=== PATIENT | female | born 1980 | race Caucasian/White ===

== ENCOUNTER 2016-09-18 17:07 | Emergency (ER) | payer OTHER ==
[~2016-09-18] VITALS: Ht 160 cm; Wt 58.8 kg
[~2016-09-18 17:07] MED LIST: CYCL10TA6 PO; HYDR-5688 PO; PRED20TA2 PO
[2016-09-18 17:15] VITALS: TEMP 37; Ht 160 cm; Wt 58.8 kg
[2016-09-18] MEDS ORDERED: BUSP1TAB46 PO (17:23)
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
[2016-09-18 18:29] VITALS: BP 117/73; PULSE 69; O2SAT 97
[2016-09-18] MEDS ORDERED: ESCI1TAB10 PO (21:58)
== END 2016-09-18 18:30 | disposition home or self-care (01) ==
LOC: EDBD 17:07 → C.EDA 17:09
DX: M79.632 Pain in left forearm (principal); V43.52XA Car driver injured in collision with other type car in traffic accident, initial encounter; Y93.89 Activity, other specified; Y99.8 Other external cause status; Y92.410 Unspecified street and highway as the place of occurrence of the external cause; F41.9 Anxiety disorder, unspecified; F32.9 Major depressive disorder, single episode, unspecified; Z86.14 Personal history of Methicillin resistant Staphylococcus aureus infection; Z86.32 Personal history of gestational diabetes; Z87.01 Personal history of pneumonia (recurrent); Z87.891 Personal history of nicotine dependence; Z83.3 Family history of diabetes mellitus; Z82.49 Family history of ischemic heart disease and other diseases of the circulatory system; Z79.899 Other long term (current) drug therapy

== ENCOUNTER 2016-09-22 15:39 | Emergency (ER) | payer OTHER ==
[~2016-09-22] VITALS: Ht 160 cm; Wt 54.9 kg
[~2016-09-22 15:39] MED LIST changes: +BUSP1TAB46 PO; -CYCL10TA6 PO; -HYDR-5688 PO; -PRED20TA2 PO
[2016-09-22 15:41] VITALS: TEMP 36.8; Ht 160 cm; Wt 54.9 kg
[2016-09-22] MEDS ORDERED: IBUP-103 PO (16:18)
[2016-09-22] MEDS ORDERED: KETOROLAC TROMETHAMINE 60 MG/2 ML VIAL IM STA (16:56)
[2016-09-22] MEDS ORDERED: DIAZEPAM INJ 5 MG/ML 2 ML CARP IM STA (16:56)
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
[2016-09-22] MEDS ORDERED: DIAZ-165 PO (17:58)
[2016-09-22] MEDS ORDERED: MELO15TA10 PO (17:58)
[2016-09-22 18:07] VITALS: BP 114/68; PULSE 86; O2SAT 97
[2016-09-22] MEDS ORDERED: ESCI1TAB10 PO (21:58)
== END 2016-09-22 18:08 | disposition home or self-care (01) ==
LOC: C.EDB 15:40 → C.EDD 18:08
DX: M54.5 Low back pain (principal); F41.9 Anxiety disorder, unspecified; F32.9 Major depressive disorder, single episode, unspecified

== ENCOUNTER 2017-06-06 18:24 | Emergency (ER) | payer SELFPAY ==
[~2017-06-06] VITALS: Ht 160 cm; Wt 56.8 kg
[~2017-06-06 18:24] MED LIST changes: +ESCI1TAB10 PO; +IBUP-103 PO; +MELO15TA10 PO
[2017-06-06 18:31] VITALS: TEMP 37.1; Ht 160 cm; Wt 56.8 kg
--- NOTE | 2017-06-06 19:59 | EMERGENCY ROOM VISIT NOTE ---
History First contact with patient: 19:05 Chief Complaint: FLU LIKE SX Stated Complaint: FEVER, BODY ACHE, CONGESTION, CRAMPS, CHILLS History of Present Illness The patient is a 36 year old female who presents to the Emergency Room with complaints of flulike symptoms. Patient reports that she has had flulike symptoms for the past 5 days. She reports body aches, headache, fevers, nasal congestion, sore throat and cough. She states that the cough has been productive of a clear mucus. Her fevers have been up to 101-102F. She states that her temperature has improved when taking ibuprofen. She rates her overall discomfort a 5/10. She does state that 1 of her coworkers was recently diagnosed with influenza B. The patient has had some abdominal cramping today but denies nausea, vomiting or diarrhea. She has a decreased appetite but has been tolerating food without any difficulty. She denies neck pain/stiffness or chest pain. Review of Systems A complete 10 point review of systems was reviewed with the patient with pertinent positives and negatives as per history of present illness. All else were negative. Past Medical/Surgical History Medical Problems: (1) Anxiety (2) Depression (3) Gestational diabetes (4) MRSA infection (5) Pneumonia (6) right fifth finger fracture (7) Suicidal ideations Family History Cancer Diabetes mellitus Heart disease Hypertension Lung disease Social History Smoking Status: Former Smoker Alcohol Use: none Marital Status: in relationship Housing Status: lives with family Occupation Status: employed Current/Historical Medications Scheduled Escitalopram Oxalate (Escitalopram Oxalate), 20 MG PO DAILY Scheduled PRN Ibuprofen Tab (Advil), 400 MG PO Q6H PRN for Pain or Fever Physical Exam Vital Signs Date Time Temp Pulse Resp B/P (MAP) Pulse Ox O2 Delivery O2 Flow Rate FiO2 06/06/17 21:18 75 16 108/56 96 Room Air 06/06/17 18:31 37.1 86 18 101/72 96 Room Air Physical Exam VITALS: Vitals are noted on the nurse's note and reviewed by myself. Vital signs stable. GENERAL: This is a 36-year-old female, in no acute distress, nondiaphoretic, well-developed well-nourished. SKIN: The skin was without rashes. EARS: External auditory canals clear, tympanic membranes pearly khan without erythema or effusion bilaterally. EYES: Pupils equal round and reactive to light and accommodation. NOSE: Patent, turbinates without inflammation or discharge. MOUTH: Mucous membranes moist. Tonsils are not enlarged. Pharynx without erythema or exudate. NECK: Supple without nuchal rigidity. No lymphadenopathy. HEART: Regular rate and rhythm without murmurs gallops or rubs. LUNGS: Clear to auscultation bilaterally without wheezes, rales or rhonchi. No retractions or accessory muscle use. ABDOMEN: Positive bowel sounds x 4. Soft, mild generalized tenderness to palpation. No guarding or rebound tenderness. NEURO: Patient was alert and oriented to person place and time. Medical Decision & Procedures ER Provider Diagnostic Interpretation: CHEST 2 VIEWS ROUTINE HISTORY: cough, flu-like sxs COMPARISON: Chest 01/30/2015. FINDINGS: The lungs are clear. Cardiac silhouette is normal in size. No pleural effusions. No pneumothorax. IMPRESSION: No acute process. Laboratory Results Test 06/06/17 19:40 Influenza Type A Antigen Neg for Influ A (NEG) Influenza Type B Antigen Neg for Influ B (NEG) Medications Administered Medications (Trade) Dose Ordered Sig/Javed Route Start Time Stop Time Status Last Admin Dose Admin Albuterol (Ventolin Hfa Inhaler) 2 puffs NOW ONCE INH 06/06/17 21:45 06/06/17 21:45 DC 06/06/17 21:36 2 PUFFS Medical Decision Differential diagnosis includes influenza, pneumonia, strep pharyngitis, mononucleosis, among others. The patient was evaluated as above. She presents today with several days of flulike symptoms. Vital signs stable and patient nontoxic in appearance. Chest x-ray was performed and showed no evidence of pneumonia. Influenza testing was found to be negative, however patient's symptoms do seem very consistent with influenza and a coworker was recently diagnosed with influenza B. I do feel this likely represents influenza, although the patient would not be a good candidate for Tamiflu. I offered the patient further workup with laboratory testing but she declined at this time. I discussed at length over- the-counter treatments including Tylenol/ibuprofen, steroid nasal spray, Sudafed , rest and fluids. The patient will return here if she has worsening of her symptoms or other new/concerning symptoms. Otherwise, she was instructed to follow-up with her primary care provider for a recheck if symptoms are not improving. She verbalized understanding of my assessment and treatment plan and was discharged home in good condition. Medication Reconcilliation Current Medication List: was personally reviewed by me Blood Pressure Screening Patient's blood pressure: Normal blood pressure Impression Primary Impression: Influenza-like symptoms Departure Information Dispostion Home / Self-Care Condition GOOD Referrals Gaurang Hector III, CRNP (PCP) Patient Instructions My [facility] Additional Instructions You were seen today for influenza-like symptoms. Your influenza test was negative, however this does not definitively rule out influenza. For pain/fever control, you can use the following [id number] medicines ( if >12 yo): -Extra strength (500 mg/tab) Tylenol (acetaminophen) 2 tabs every 6 hours as needed. Avoid taking more than 4 grams (4000 mg) of Tylenol per day. This includes any other sources of acetaminophen you may take on a regular basis. - Regular strength (200 mg/tab) Advil (ibuprofen) 3-4 tabs every 6 hours as needed. Do not exceed a dose of 3200 mg per day. You may take Sudafed as directed on the package as needed for congestion. You may try a Flonase nasal spray to reduce nasal congestion. This is a steroid nasal spray which can be purchased [id number]. Use the Ventolin inhaler every 4-6 hours as needed for cough/shortness of breath. Follow-up with your primary care provider if symptoms are not improving by the end of the week. It is very important that you rest for the next 2-3 days and drink plenty of fluids to stay well-hydrated. Return to the emergency department with focal abdominal pain, high fevers not controlled by Tylenol or ibuprofen, neck pain/stiffness, vomiting, or any other new/concerning symptoms.
--- NOTE | 2017-06-06 20:15 | DIAGNOSTIC IMAGING REPORT ---
CHEST 2 VIEWS ROUTINE HISTORY: cough, flu-like sxs COMPARISON: Chest 01/30/2015. FINDINGS: The lungs are clear. Cardiac silhouette is normal in size. No pleural effusions. No pneumothorax. IMPRESSION: No acute process. Electronically signed by: Kobe Damon M.D. 06/06/2017 8:14 PM Dictated Date/Time: 06/06/2017 8:12 PM
[2017-06-06 20:25] LABS: INFLUENZA B ANTIGEN Neg for Influ B (NEG)
[2017-06-06] MEDS ORDERED: LXP/20 PO (20:27)
[2017-06-06 21:18] VITALS: BP 108/56; PULSE 75; O2SAT 96
[2017-06-06] MEDS ORDERED: ALBUTEROL HFA 8 GM INHALER INH ONE ×2 (21:34→21:45)
== END 2017-06-06 21:38 | disposition home or self-care (01) ==
LOC: C.EDB 18:26 → C.EDA 21:38
DX: R05 Cough (principal); R51 Headache; R09.81 Nasal congestion; J02.9 Acute pharyngitis, unspecified; R10.817 Generalized abdominal tenderness; F41.9 Anxiety disorder, unspecified; F32.9 Major depressive disorder, single episode, unspecified; Z87.891 Personal history of nicotine dependence

== ENCOUNTER 2021-01-08 12:19 | Inpatient (IN) ==
[2021-01-08] MEDS ORDERED: SODIUM CHLORIDE 0.9% 1000ML 2,000 ML IV ONE (12:33)
[2021-01-08] MEDS ORDERED: CEFEPIME 2,000 MG/20 ML VIAL IV STA (12:38)
[2021-01-08] MEDS ORDERED: ONDANSETRON INJ 2 MG/ML 2 ML VIAL IV STA (12:38)
--- NOTE | 2021-01-08 12:59 | Emergency Department Note ---
Impression & Plan Pancolitis, Diarrhea, Hypokalemia, Acute hypotension, Clostridium difficile colitis ED Provider Note NAME: RUSSELL POWELL AGE: 40 SEX: F : 1980 ARRIVES VIA: Walk-In INFORMANT: Patient, ED PROVIDER(S): Ant Pruitt DO CHIEF COMPLAINT: Weakness HPI: The patient is a 40-year-old female who presented to the emergency d [facility] for an evaluation of weakness. The patient states that she is been having symptoms over the course the last few weeks. She was treated with an antibiotic for an infection. She states that the symptoms resolved but over the last 48 hours she started having other symptoms including back pain and loose bowel movements. She states her symptoms became moderate to severe and she called her primary care physician today to be seen. She was told to go to the emergency department for further evaluation. She denies having any dysuria. She does complain of some bilateral flank pain. She denies having any chest pain cough or difficulty breathing. She states that she felt subjectively that she had a fever but did not check her temperature. She denies having any lower extremity swelling or rashes. She denies having any vaginal bleeding or discharge. She has a history of a hysterectomy in the past for dysfunctional bleeding from fibroids. The patient was noted to have significant abnormal vital signs in triage. She was made a priority patient and brought directly to room A4. She states that she felt as though she was going to pass out when she stood up but now that she is lying flat she feels better. She denies having any black or bloody bowel movements. ROS: See above HPI for pertinent positives & negatives. A total of 10 systems reviewed and were otherwise negative. PAST MEDICAL HISTORY: See Below PAST SURGICAL HISTORY: See Below FAMILY HISTORY: See Below SOCIAL HISTORY: See Below HOME MEDICATIONS: See Below ALLERGIES: See Below VITALS: See Below PHYSICAL EXAMINATION: GENERAL: Patient is awake alert in no acute distress patient is resting comfortably and showing no signs of anxiety EYES: The conjunctivae are clear. The pupils are round and reactive. EARS, NOSE, MOUTH AND THROAT: The nose is without any evidence of any deformity. Mucous membranes are moist. Tongue is midline. NECK: The neck is nontender and supple. RESPIRATORY: Normal respiratory effort is noted there is no evidence of wheezing rhonchi or rales CARDIOVASCULAR: Regular rate and rhythm noted there no murmurs rubs or gallops normal S1 normal S2. GASTROINTESTINAL: The abdomen is soft and nondistended. There is diffuse tenderness to palpation but no guarding or rigidity. BACK: No midline tenderness or or step-off noted range of motion in flexion ext ension as well as rotation no signs of muscle spasm noted MUSCULOSKELETAL/EXTREMITIES: There is no evidence of gross deformity full range of motion is noted in the hips and shoulders. SKIN: There is no obvious evidence of any rash. There are no petechiae, pallor or cyanosis noted. NEUROLOGIC: Patient is awake alert and oriented x3 strength is symmetric patellar reflexes are 2+ bilaterally MEDICAL DECISION MAKING: The patient is a 40-year-old female who presented to the emergency department for an evaluation of lower abdominal cramping. The patient was experiencing diarrhea. She was placed on clindamycin a few weeks ago. She started having some abdominal cramping and generalized weakness. She presented to the emergency department with lightheadedness. She was found to be very hypotensive and tachycardic. She was brought back to room 8 4 immediately and made a priority patient. She was treated with IV fluids and IV antibiotics in the em ergency department. She was also treated with IV pain medication. She was treated with 3 L of normal saline. Her blood pressure did stabilize. I discussed patient's laboratory and radiographic studies with her. We are still waiting for stool sample. Given her CT findings it is highly possible this could represent pancolitis from C. difficile colitis. If this were the case the involvement is extensive. She may require further inpatient management. For this reason I discussed her case with the on-call [facility] hospitalist. They have agreed to evaluate the patient in the emergency department for further management and disposition. The patient did recently have a hysterectomy. G iven her hypotension there was concern that this could be postoperative complications such as infection or bleeding. This was not found to be the case on CAT scan. Triage Nursing notes reviewed. Prior medical records reviewed Vital Signs: reviewed and remarkable for hypotension and tachycardia. Differential diagnosis: Renal colic, UTI, appendicitis, diverticulitis, mesenteric ischemia, aortic pathology, infections, inflammatory bowel disease, PUD, biliary pathology, as well as other pathologies. ER treatment provided: See below Diagnostics interpreted by me: ECG: EKG was obtained in the emergency department. My interpretation is sinus rhythm at 93 bpm. There was no ectopy. There is no acute ST segment abnormalities noted. This was compared to a tracing from November 282020. No significant changes were noted. Cardiac Monitoring: An order was placed for continuous cardiac monitoring. The monitor shows a rate of 105 bpm with sinus tachycardia. Laboratory studies: As stated above and show below. Imaging studies: See below Consultation(s): I discussed this case with Dr. Foster who is on-call for the [facility] hospitalist group. He will evaluate the patient in the emergency department. Past Med/Surg History Medical History (Updated 01/09/21 @ 06:32 by Ant Pruitt DO) Anemia Anxiety Depression Gestational diabetes hx Pneumonia recurrent pneumonias in her early 30s Tuberculosis 2011 s/p treatment x 9 months Uterine fibroid Surgical History H/O hysterectomy for benign disease TLH for fibroids. H/O tubal ligation H/O wisdom tooth extraction H/O: section History of anesthesia reaction Post-op hypotension that needed to be monitored longer (no further details per PAT RN interview) History of carpal tunnel surgery of right wrist Hx of hand surgery 3 surgies, had pins Hx of lymph node excision abdomen and groin Family History Grandmother (Maternal) Myocardial infarction Aunt Ovarian cancer Maternal Cervical cancer Sister Endometriosis Father Type 1 diabetes Mother Rheumatoid arthritis Other Dyslipidemia Hypertension Denies family history of Prostate cancer Breast cancer Colorectal cancer Uterine cancer Social History Smoking Status: Former smoker Cigarettes Per Day: 0.5; Smoking End Date: 2012; Second Hand Exposure: No; Do You Dip or Chew Tobacco: No; Tobacco Cessation Education Requested by Patient: No Hx Alcohol Use: Yes Alcohol type: wine Alcohol Intake Frequency: 2-4 x/Month Hx Substance Use: No Preferred Language: Georgian Communication Ability: Effective Visual Impairment: No Limitations Hearing Ability: Normal Dermatology Nurse Practitioner Required: No Beliefs That Will Affect Care: None marital status: Single Current Living Situation: Family Current Living Situation Comment: Lives 2 [place] (20 yrs old, 13 yrs old) current occupational status: employed 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 [employer] How many Children do You have: 2 Other Information That Helps Us Care for You: No Feels Safe at Home: Yes Safety Concerns: Feels Safe At This Time Childhood Exposure to Second-Hand Smoke: No Dental Care, Regularly: Yes Physical Activity Frequency: Daily Seatbelt Use: always Sunscreen Use: Yes Do you think of yourself as: straight/heterosexual Assistive Devices: Glasses Allergies Allergies Allergy/AdvReac Type Severity Reaction Status Date / Time Penicillins Allergy Intermediate HIVES Verified 01/08/21 15:15 Home Meds Home Medications Medication Instructions Recorded Confirmed vitamin B complex 1 cap PO DAILY 09/29/20 01/08/21 multivitamin 1 tab PO DAILY 11/23/20 01/08/21 cholecalciferol (vitamin D3) 25 25 mcg PO DAILY 01/08/21 01/08/21 mcg (1,000 unit) tablet (Vitamin D3) Results & Data (ED) Vital Signs Vital Signs - 24 hr 01/08/21 12:23 01/08/21 12:41 01/08/21 12:45 Temperature 36.7 C Temperature Source Skin Pulse Rate 120 H 95 H Pulse Rate [Apical] Pulse Rate from SpO2 Sensor 96 H Pulse Rhythm [Apical] Respiratory Rate 24 17 Respiratory Effort / Characteristics Non-Labored Respiratory Depth Normal Blood Pressure 69/40 L Blood Pressure [Left Arm] Blood Pressure Mean 49 Blood Pressure Mean [Left Arm] Blood Pressure Position [Left Arm] Pulse Oximetry 100 100 Oxygen Delivery Method Room Air Room Air Sepsis Recent Fever Within 48 Hours No Sepsis New/Unexplained Change in Mental Status N/A Sepsis Action Taken by Nursing Physician Notified 01/08/21 12:50 01/08/21 13:00 01/08/21 13:10 Temperature Temperature Source Pulse Rate 100 H 97 H 107 H Pulse Rate [Apical] Pulse Rate from SpO2 Sensor 100 H 97 H 107 H Pulse Rhythm [Apical] Respiratory Rate 14 16 19 Respiratory Effort / Characteristics Respiratory Depth Blood Pressure Blood Pressure [Left Arm] Blood Pressure Mean Blood Pressure Mean [Left Arm] Blood Pressure Position [Left Arm] Pulse Oximetry 98 97 99 Oxygen Delivery Method Sepsis Recent Fever Within 48 Hours Sepsis New/Unexplained Change in Mental Status Sepsis Action Taken by Nursing 01/08/21 13:20 01/08/21 13:30 01/08/21 13:34 Temperature Temperature Source Pulse Rate 108 H 108 H Pulse Rate [Apical] 108 H Pulse Rate from SpO2 Sensor 107 H 108 H Pulse Rhythm [Apical] Regular Respiratory Rate 25 H 20 20 Respiratory Effort / Characteristics Respiratory Depth Blood Pressure 98/69 L Blood Pressure [Left Arm] 98/69 L Blood Pressure Mean 78 Blood Pressure Mean [Left Arm] 78 Blood Pressure Position [Left Arm] Lying Pulse Oximetry 97 99 95 Oxygen Delivery Method Room Air Sepsis Recent Fever Within 48 Hours Sepsis New/Unexplained Change in Mental Status Sepsis Action Taken by Nursing 01/08/21 13:44 01/08/21 13:50 01/08/21 14:00 Temperature Temperature Source Pulse Rate 117 H 107 H 111 H Pulse Rate [Apical] Pulse Rate from SpO2 Sensor 115 H 107 H Pulse Rhythm [Apical] Respiratory Rate 22 15 14 Respiratory Effort / Characteristics Respiratory Depth Blood Pressure 122/70 Blood Pressure [Left Arm] Blood Pressure Mean 87 Blood Pressure Mean [Left Arm] Blood Pressure Position [Left Arm] Pulse Oximetry 95 98 Oxygen Delivery Method Sepsis Recent Fever Within 48 Hours Sepsis New/Unexplained Change in Mental Status Sepsis Action Taken by Nursing 01/08/21 14:02 01/08/21 14:16 01/08/21 14:20 Temperature Temperature Source Pulse Rate 105 H 107 H Pulse Rate [Apical] Pulse Rate from SpO2 Sensor 105 H 110 H Pulse Rhythm [Apical] Respiratory Rate 26 H 22 Respiratory Effort / Characteristics Respiratory Depth Blood Pressure Blood Pressure [Left Arm] Blood Pressure Mean Blood Pressure Mean [Left Arm] Blood Pressure Position [Left Arm] Pulse Oximetry 98 96 98 Oxygen Delivery Method Room Air Sepsis Recent Fever Within 48 Hours Sepsis New/Unexplained Change in Mental Status Sepsis Action Taken by Nursing 01/08/21 14:24 Temperature Temperature Source Pulse Rate Pulse Rate [Apical] 105 H Pulse Rate from SpO2 Sensor Pulse Rhythm [Apical] Respiratory Rate 16 Respiratory Effort / Characteristics Respiratory Depth Blood Pressure Blood Pressure [Left Arm] 122/70 Blood Pressure Mean Blood Pressure Mean [Left Arm] 87 Blood Pressure Position [Left Arm] Lying Pulse Oximetry 95 Oxygen Delivery Method Room Air Sepsis Recent Fever Within 48 Hours Sepsis New/Unexplained Change in Mental Status Sepsis Action Taken by [facility] Medications Current Medication List: was personally reviewed by me Laboratory Data Attestation: I reviewed the patient's lab results. Result diagrams: 01/09/21 05:43 01/08/21 12:45 Lab Results 01/08/21 01/08/21 01/08/21 Range/Units 12:45 12:45 12:45 WBC 20.50 H (4.8-10.8) K/uL RBC 4.68 (4.2-5.4) M/uL Hgb 13.8 (12.0-16.0) g/dL Hct 39.9 (37-47) % MCV 85.3 (80-100) fL MCH 29.5 (25-34) pg MCHC 34.6 (32-36) g/dL RDW Std Deviation 40.0 (36.4-46.3) fL RDW Coeff of Fantasma 12.9 (11.5-14.5) % Plt Count 313 (130-400) K/uL MPV 10.5 H (7.4-10.4) fL Immature Gran % (Auto) 0.3 % Neut % (Auto) 85.6 % Lymph % (Auto) 7.9 % Valley % (Auto) 5.1 % Eos % (Auto) 1.0 % Baso % (Auto) 0.1 % Neut # (Auto) 17.56 H (1.4-6.5) K/uL Lymph # (Auto) 1.61 (1.2-3.4) K/uL Valley # (Auto) 1.04 H (0.11-0.59) K/uL Eos # (Auto) 0.20 (0-0.5) K/uL Baso # (Auto) 0.03 (0-0.2) K/uL Immature Gran # (Auto) 0.06 H (0.00-0.02) K/uL PT 10.0 (9.0-12.0) Seconds INR 1.0 (0.9-1.1) APTT 22.0 (21.0-31.0) Seconds PTT Ratio 0.8 Sodium 139 (136-145) mmol/L Potassium 3.1 L (3.5-5.1) mmol/L Chloride 108 H (98-107) mmol/L Carbon Dioxide 22 (21-32) mmol/L Anion Gap 9.0 (3-11) BUN 11 (7-18) mg/dl Creatinine 0.87 (0.6-1.2) mg/dl Est Cr Clr Drug Dosing 68.7 ml/min Est GFR ( Amer) 97.3 ml/min Est GFR (Non-Af Amer) 83.9 ml/min BUN/Creatinine Ratio 13.1 (10-20) Glucose 133 H (70-99) mg/dl Lactate (0.4-2.0) mmol/L Calcium 8.9 (8.5-10.1) mg/dl Magnesium 2.0 (1.8-2.4) mg/dl Total Bilirubin 1.4 H (0.2-1) mg/dl AST 10 L (15-37) U/L ALT 19 (12-78) U/L Alkaline Phosphatase 60 (45-117) U/L Troponin I < 0.015 (0-0.045) ng/ml Total Protein 7.3 (6.4-8.2) gm/dl Albumin 3.7 (3.4-5.0) gm/dl Globulin 3.6 (2.5-4.0) gm/dl Albumin/Globulin Ratio 1.0 (0.9-2) Procalcitonin (0-0.5) ng/ml Urine Color Urine Appearance (Clear) Urine pH (4.5-7.5) Ur Specific Max (1.000-1.030) Urine Protein (Negative) Urine Glucose (UA) (Negative) Urine Ketones (Negative) Urine Blood (Negative) Urine Nitrite (Negative) Urine Bilirubin (Negative) Urine Urobilinogen (Negative) Ur Leukocyte Esterase (Negative) Stl C. diff Tox B Gene (Neg) Stl C.difficile Tox A&B (Negative) Salicylates (2.8-20) mg/dl Acetaminophen (10-30) ug/ml COVID-19 Eval Order SARS-CoV-2 (PCR) (Negative) Monoscreen (Negative) 01/08/21 01/08/21 01/08/21 Range/Units 12:45 12:45 12:45 WBC (4.8-10.8) K/uL RBC (4.2-5.4) M/uL Hgb (12.0-16.0) g/dL Hct (37-47) % MCV (80-100) fL MCH (25-34) pg MCHC (32-36) g/dL RDW Std Deviation (36.4-46.3) fL RDW Coeff of Fantasma (11.5-14.5) % Plt Count (130-400) K/uL MPV (7.4-10.4) fL Immature Gran % (Auto) % Neut % (Auto) % Lymph % (Auto) % Valley % (Auto) % Eos % (Auto) % Baso % (Auto) % Neut # (Auto) (1.4-6.5) K/uL Lymph # (Auto) (1.2-3.4) K/uL Valley # (Auto) (0.11-0.59) K/uL Eos # (Auto) (0-0.5) K/uL Baso # (Auto) (0-0.2) K/uL Immature Gran # (Auto) (0.00-0.02) K/uL PT (9.0-12.0) Seconds INR (0.9-1.1) APTT (21.0-31.0) Seconds PTT Ratio Sodium (136-145) mmol/L Potassium (3.5-5.1) mmol/L Chloride (98-107) mmol/L Carbon Dioxide (21-32) mmol/L Anion Gap (3-11) BUN (7-18) mg/dl Creatinine (0.6-1.2) mg/dl Est Cr Clr Drug Dosing ml/min Est GFR ( Amer) ml/min Est GFR (Non-Af Amer) ml/min BUN/Creatinine Ratio (10-20) Glucose (70-99) mg/dl Lactate (0.4-2.0) mmol/L Calcium (8.5-10.1) mg/dl Magnesium (1.8-2.4) mg/dl Total Bilirubin (0.2-1) mg/dl AST (15-37) U/L ALT (12-78) U/L Alkaline Phosphatase (45-117) U/L Troponin I (0-0.045) ng/ml Total Protein (6.4-8.2) gm/dl Albumin (3.4-5.0) gm/dl Globulin (2.5-4.0) gm/dl Albumin/Globulin Ratio (0.9-2) Procalcitonin < 0.05 (0-0.5) ng/ml Urine Color Urine Appearance (Clear) Urine pH (4.5-7.5) Ur Specific Max (1.000-1.030) Urine Protein (Negative) Urine Glucose (UA) (Negative) Urine Ketones (Negative) Urine Blood (Negative) Urine Nitrite (Negative) Urine Bilirubin (Negative) Urine Urobilinogen (Negative) Ur Leukocyte Esterase (Negative) Stl C. diff Tox B Gene (Neg) Stl C.difficile Tox A&B (Negative) Salicylates < 1.7 L (2.8-20) mg/dl Acetaminophen < 2 L (10-30) ug/ml COVID-19 Eval Order SARS-CoV-2 (PCR) (Negative) Monoscreen Negative (Negative) 01/08/21 01/08/21 01/08/21 Range/Units 12:48 12:48 13:11 WBC (4.8-10.8) K/uL RBC (4.2-5.4) M/uL Hgb (12.0-16.0) g/dL Hct (37-47) % MCV (80-100) fL MCH (25-34) pg MCHC (32-36) g/dL RDW Std Deviation (36.4-46.3) fL RDW Coeff of Fantasma (11.5-14.5) % Plt Count (130-400) K/uL MPV (7.4-10.4) fL Immature Gran % (Auto) % Neut % (Auto) % Lymph % (Auto) % Valley % (Auto) % Eos % (Auto) % Baso % (Auto) % Neut # (Auto) (1.4-6.5) K/uL Lymph # (Auto) (1.2-3.4) K/uL Valley # (Auto) (0.11-0.59) K/uL Eos # (Auto) (0-0.5) K/uL Baso # (Auto) (0-0.2) K/uL Immature Gran # (Auto) (0.00-0.02) K/uL PT (9.0-12.0) Seconds INR (0.9-1.1) APTT (21.0-31.0) Seconds PTT Ratio Sodium (136-145) mmol/L Potassium (3.5-5.1) mmol/L Chloride (98-107) mmol/L Carbon Dioxide (21-32) mmol/L Anion Gap (3-11) BUN (7-18) mg/dl Creatinine (0.6-1.2) mg/dl Est Cr Clr Drug Dosing ml/min Est GFR ( Amer) ml/min Est GFR (Non-Af Amer) ml/min BUN/Creatinine Ratio (10-20) Glucose (70-99) mg/dl Lactate 1.1 (0.4-2.0) mmol/L Calcium (8.5-10.1) mg/dl Magnesium (1.8-2.4) mg/dl Total Bilirubin (0.2-1) mg/dl AST (15-37) U/L ALT (12-78) U/L Alkaline Phosphatase (45-117) U/L Troponin I (0-0.045) ng/ml Total Protein (6.4-8.2) gm/dl Albumin (3.4-5.0) gm/dl Globulin (2.5-4.0) gm/dl Albumin/Globulin Ratio (0.9-2) Procalcitonin (0-0.5) ng/ml Urine Color Urine Appearance (Clear) Urine pH (4.5-7.5) Ur Specific Max (1.000-1.030) Urine Protein (Negative) Urine Glucose (UA) (Negative) Urine Ketones (Negative) Urine Blood (Negative) Urine Nitrite (Negative) Urine Bilirubin (Negative) Urine Urobilinogen (Negative) Ur Leukocyte Esterase (Negative) Stl C. diff Tox B Gene (Neg) Stl C.difficile Tox A&B (Negative) Salicylates (2.8-20) mg/dl Acetaminophen (10-30) ug/ml COVID-19 Eval Order Covid19 at [facility] SARS-CoV-2 (PCR) NEGATIVE (Negative) Monoscreen (Negative) 01/08/21 01/08/21 Range/Units 13:50 14:47 WBC (4.8-10.8) K/uL RBC (4.2-5.4) M/uL Hgb (12.0-16.0) g/dL Hct (37-47) % MCV (80-100) fL MCH (25-34) pg MCHC (32-36) g/dL RDW Std Deviation (36.4-46.3) fL RDW Coeff of Fantasma (11.5-14.5) % Plt Count (130-400) K/uL MPV (7.4-10.4) fL Immature Gran % (Auto) % Neut % (Auto) % Lymph % (Auto) % Valley % (Auto) % Eos % (Auto) % Baso % (Auto) % Neut # (Auto) (1.4-6.5) K/uL Lymph # (Auto) (1.2-3.4) K/uL Valley # (Auto) (0.11-0.59) K/uL Eos # (Auto) (0-0.5) K/uL Baso # (Auto) (0-0.2) K/uL Immature Gran # (Auto) (0.00-0.02) K/uL PT (9.0-12.0) Seconds INR (0.9-1.1) APTT (21.0-31.0) Seconds PTT Ratio Sodium (136-145) mmol/L Potassium (3.5-5.1) mmol/L Chloride (98-107) mmol/L Carbon Dioxide (21-32) mmol/L Anion Gap (3-11) BUN (7-18) mg/dl Creatinine (0.6-1.2) mg/dl Est Cr Clr Drug Dosing ml/min Est GFR ( Amer) ml/min Est GFR (Non-Af Amer) ml/min BUN/Creatinine Ratio (10-20) Glucose (70-99) mg/dl Lactate (0.4-2.0) mmol/L Calcium (8.5-10.1) mg/dl Magnesium (1.8-2.4) mg/dl Total Bilirubin (0.2-1) mg/dl AST (15-37) U/L ALT (12-78) U/L Alkaline Phosphatase (45-117) U/L Troponin I (0-0.045) ng/ml Total Protein (6.4-8.2) gm/dl Albumin (3.4-5.0) gm/dl Globulin (2.5-4.0) gm/dl Albumin/Globulin Ratio (0.9-2) Procalcitonin (0-0.5) ng/ml Urine Color Yellow Urine Appearance Clear (Clear) Urine pH 6.0 (4.5-7.5) Ur Specific Max 1.012 (1.000-1.030) Urine Protein Negative (Negative) Urine Glucose (UA) Negative (Negative) Urine Ketones Trace H (Negative) Urine Blood Negative (Negative) Urine Nitrite Negative (Negative) Urine Bilirubin Negative (Negative) Urine Urobilinogen Negative (Negative) Ur Leukocyte Esterase Negative (Negative) Stl C. diff Tox B Gene Positive Cdiff Gene H (Neg) Stl C.difficile Tox A&B Positive Cdiff Toxin A* (Negative) Salicylates (2.8-20) mg/dl Acetaminophen (10-30) ug/ml COVID-19 Eval Order SARS-CoV-2 (PCR) (Negative) Monoscreen (Negative) Administered Medications Acetaminophen (Acetaminophen 325 Mg Tab) 650 mg PO Q4H PRN PRN Reason: Pain or Fever Stop: 02/07/21 19:09 Last Admin: 01/08/21 20:28 Dose: 650 mg Documented by: [id number] Hydrocodone Bitart/Acetaminophen (Hydrocodone/Acetamophen 5/325mg Tab) 1 tab PO Q4H PRN PRN Reason: Pain Stop: 01/22/21 19:09 Last Admin: 01/09/21 01:18 Dose: 1 tab Documented by: [id number] Potassium Chloride/Sodium Chloride (Normal Saline W/20 Meq Kcl) 20 meq in 1,000 mls @ 150 mls/hr IV .Q6H40M [facility] Stop: 01/09/21 08:49 Last Admin: 01/09/21 03:05 Dose: 150 mls/hr Documented by: [id number] Infusion: 01/09/21 03:01 Dose: 150 mls/hr Documented by: [id number] Admin: 01/08/21 20:20 Dose: 150 mls/hr Documented by: [id number] Famotidine 20 mg/ Syringe 5 mls @ 2.5 mls/min IV Q12H [facility] Stop: 02/07/21 19:59 Last Admin: 01/08/21 20:20 Dose: 2.5 mls/min Documented by: [id number] Metronidazole (Metronidazole 500 Mg Tab) 500 mg PO Q8H [facility] Stop: 01/19/21 00:59 Last Admin: 01/09/21 01:19 Dose: 500 mg Documented by: [id number] Ondansetron HCl (Ondansetron Inj 2 Mg/Ml 2 Ml Vial) 4 mg IV Q6H PRN PRN Reason: Nausea Stop: 02/07/21 19:09 Last Admin: 01/09/21 06:30 Dose: 4 mg Documented by: [id number] Potassium Chloride (Potassium Chloride 10 Meq Tabcr) 10 meq PO BID JOANNA Stop: 02/07/21 20:59 Last Admin: 01/08/21 20:23 Dose: 10 meq Documented by: [id number] Raspberry (Raspberry Syrup 5 Ml Udp) 5 ml PO Q6 [facility] Stop: 01/18/21 22:59 Last Admin: 01/09/21 05:57 Dose: 5 ml Documented by: [id number] Admin: 01/09/21 00:20 Dose: Not Given Documented by: [id number] Admin: 01/08/21 22:09 Dose: 5 ml Documented by: [id number] Vancomycin HCl (Vancomycin Hcl 500 Mg/10 Ml Soln) 500 mg PO Q6 JOANNA Stop: 01/18/21 22:59 Last Admin: 01/09/21 05:57 Dose: 500 mg Documented by: [id number] Admin: 01/09/21 00:20 Dose: Not Given Documented by: [id number] Admin: 01/08/21 22:09 Dose: 500 mg Documented by: [id number] Discontinued Medications Fentanyl Citrate (Fentanyl Citrate 100 Mcg/2 Ml Vial) 50 mcg IV Q15M PRN PRN Reason: Pain Stop: 01/22/21 12:37 Last Admin: 01/08/21 16:05 Dose: 50 mcg Documented by: [id number] Admin: 01/08/21 14:00 Dose: 50 mcg Documented by: [id number] Sodium Chloride (Nss 1000ml) 2,000 mls @ 999 mls/hr IV .Q2H1M ONE Stop: 01/08/21 14:33 Last Infusion: 01/08/21 14:12 Dose: 0 mls/hr Documented by: [id number] Admin: 01/08/21 12:44 Dose: 999 mls/hr Documented by: [id number] Cefepime HCl (Maxipime) 2,000 mg in 20 mls @ 5 mls/min IV NOW STA; Protocol Stop: 01/08/21 12:41 Last Admin: 01/08/21 14:00 Dose: 5 mls/min Documented by: [id number] Sodium Chloride (Nss 1000ml) 1,000 mls @ 999 mls/hr IV .Q1H1M ONE Stop: 01/08/21 15:12 Last Infusion: 01/08/21 14:56 Dose: 0 mls/hr Documented by: [id number] Admin: 01/08/21 14:22 Dose: 999 mls/hr Documented by: [id number] Potassium Chloride (K Chevy / Wtr) 10 meq in 100 mls @ 100 mls/hr IV ONE ONE Stop: 01/08/21 15:33 Last Infusion: 01/08/21 15:59 Dose: 0 mls/hr Documented by: [id number] Admin: 01/08/21 14:56 Dose: 100 mls/hr Documented by: [id number] Potassium Chloride (K [place]vy / Wtr) 10 meq in 100 mls @ 100 mls/hr IV ONE ONE Stop: 01/08/21 16:40 Last Infusion: 01/08/21 17:35 Dose: 0 mls/hr Documented by: [id number] Admin: 01/08/21 16:05 Dose: 100 mls/hr Documented by: [id number] Metronidazole (Flagyl) 500 mg in 100 mls @ 100 mls/hr IV NOW STA; Protocol Stop: 01/08/21 17:32 Last Infusion: 01/08/21 18:27 Dose: 0 mls/hr Documented by: [id number] Admin: 01/08/21 17:19 Dose: 100 mls/hr Documented by: [id number] Ioversol (Optiray 320 100ml) 90 ml IV ONCE ONE Stop: 01/08/21 14:14 Last Admin: 01/08/21 14:13 Dose: 90 ml Documented by: [id number] Ondansetron HCl (Ondansetron Inj 2 Mg/Ml 2 Ml Vial) 4 mg IV NOW STA Stop: 01/08/21 12:39 Last Admin: 01/08/21 14:00 Dose: 4 mg Documented by: [id number] Raspberry (Raspberry Syrup 5 Ml Udp) 5 ml PO ONE STA Stop: 01/08/21 16:34 Last Admin: 01/08/21 17:20 Dose: 5 ml Documented by: [id number] Vancomycin HCl (Vancomycin Hcl 500 Mg/10 Ml Soln) 500 mg PO ONE STA Stop: 01/08/21 16:34 Last Admin: 01/08/21 17:20 Dose: 500 mg Documented by: [id number] Imaging Data Radiologist's Impression: Abdomen/Pelvis CT 01/08/21 12:33 CT OF THE ABDOMEN AND PELVIS WITH CONTRAST CLINICAL HISTORY: Abdominal pain and vomiting. COMPARISON STUDY: CT of the abdomen and pelvis November 28, 2020. TECHNIQUE: Following IV administration of 90 mL of Optiray, axial images of the abdomen and pelvis were obtained from the lung bases to the proximal femurs. Images were reviewed in the axial, sagittal, and coronal planes. IV contrast was administered without complication. Automated exposure control was utilized for the study. A dose lowering technique was utilized adhering to the principles of ALARA. CT DOSE: 425.52 mGycm FINDINGS: Lung bases are unremarkable. No pneumatosis, free air or portal venous gas is present. Size of the spleen is at the upper limits of normal. There is no biliary or pancreatic ductal dilatation. The liver, adrenal glands, kidneys and pancreas are unremarkable. Sensitivity for detection of urinary calculi is diminished given excreted contrast. No hydronephrosis. The appendix is normal. There is wall thickening of the entire colon and the rectum. This is new since prior CT. There is minimal pericolonic infiltration. No free air or abscess is present. There is no evidence for a bowel obstruction. Major vasculature is patent. No acute fracture or suspicious lesion is identified within the visualized skeletal structures. Pelvic calcifications reflect phleboliths. IMPRESSION: Wall thickening of the entire colon and rectum. This represents a nonspecific proctocolitis, likely infectious or inflammatory in etiology. No abscess. No free air. Normal appendix. ACT 112: Negative or not required by law. Electronically signed by: Pritesh Solano M.D. 01/08/2021 2:20 PM Chest X-Ray 01/08/21 12:33 XR chest 1V portable CLINICAL HISTORY: SEPSIS COMPARISON STUDY: Chest radiograph June 06, 2017. FINDINGS: Lung volumes are normal. Lungs are clear. There is no pneumothorax or pleural effusion. Cardiac size is normal. Mediastinal contours are normal. There is no evidence for pulmonary edema. Nipple shadows are incidentally noted. IMPRESSION: No acute cardiopulmonary findings. ACT 112: Negative or not required by law. Electronically signed by: Pritesh Solano M.D. 01/08/2021 2:07 PM Discharge Plan Visit Data Chief Complaint: Fever Stated Complaint: LOWER BACK PAIN,FEVER,N/V/D ED Provider: Ant Pruitt Discharge Problem: Pancolitis, Diarrhea, Hypokalemia, Acute hypotension, Clostridium difficile colitis Patient Disposition: Admitted As Inpatient Discharge Instructions Interventions: ED Discharge Assessment Last Done: 01/08/21 18:43
[2021-01-08 13:01] LABS: Basophils # (auto) 0.03 K/uL (0-0.2); Basophils % (auto) 0.1 %; Hematocrit (blood only) 39.9 % (37-47); Hemoglobin 13.8 g/dL (12.0-16.0); Immature Granulocytes # (auto) 0.06 K/uL (0.00-0.02); Immature Granulocytes % (auto) 0.3 %; Lymphocytes # (auto) 1.61 K/uL (1.2-3.4); Lymphocytes % (auto) 7.9 %; Mean Corpuscular Hemoglobin 29.5 pg (25-34); Mean Corpuscular Hgb Conc 34.6 g/dL (32-36); Mean Corpuscular Volume 85.3 fL (80-100); Mean Platelet Volume 10.5 fL (7.4-10.4); Monocytes # (auto) 1.04 K/uL (0.11-0.59); Monocytes % (auto) 5.1 %; Neutrophils # (auto) 17.56 K/uL (1.4-6.5); Neutrophils % (auto) 85.6 %; Platelet Count 313 K/uL (130-400); RDW Coefficient of Variation 12.9 % (11.5-14.5); Red Blood Count 4.68 M/uL (4.2-5.4)
[2021-01-08 13:11] LABS: Partial Thromboplastin Ratio 0.8
[2021-01-08 13:21] LABS: Alanine Aminotransferase 19 U/L (12-78); Albumin Level 3.7 gm/dl (3.4-5.0); Aspartate Aminotransferase 10 U/L (15-37); BUN Creatinine Ratio 13.1 (10-20); Blood Urea Nitrogen 11 mg/dl (7-18); Calcium 8.9 mg/dl (8.5-10.1); Carbon Dioxide 22 mmol/L (21-32); Chloride 108 mmol/L (98-107); Creatinine Clr Calc Pharmacy 68.7 ml/min; Est GFR (African American) 97.3 ml/min; Est GFR (Non-African American) 83.9 ml/min; Glucose 133 mg/dl (70-99); Potassium 3.1 mmol/L (3.5-5.1); Sodium 139 mmol/L (136-145)
[2021-01-08 13:26] LABS: Alkaline Phosphatase 60 U/L (45-117); Bilirubin,Total 1.4 mg/dl (0.2-1); Globulin 3.6 gm/dl (2.5-4.0); Total Protein 7.3 gm/dl (6.4-8.2); Troponin I < 0.015 ng/ml (0-0.045)
[2021-01-08 13:28] LABS: Acetaminophen < 2 ug/ml (10-30); Salicylate < 1.7 mg/dl (2.8-20)
[2021-01-08] MEDS: fentaNYL citrate 100 MCG/2 ML VIAL IV PRN ×2 (14:00→16:05)
--- NOTE | 2021-01-08 14:09 | XRay Report ---
XR chest 1V portable CLINICAL HISTORY: SEPSIS COMPARISON STUDY: Chest radiograph June 06, 2017. FINDINGS: Lung volumes are normal. Lungs are clear. There is no pneumothorax or pleural effusion. Car diac size is normal. Mediastinal contours are normal. There is no evidence for pulmonary edema. Nippl e shadows are incidentally noted. IMPRESSION: No acute cardiopulmonary findings. ACT 112: Negative or not required by law. Electronically signed by: Pritesh Solano M.D. 01/08/2021 2:07 PM
[2021-01-08] MEDS ORDERED: SODIUM CHLORIDE 0.9% 1000ML 1,000 ML IV ONE (14:12)
[2021-01-08] MEDS ORDERED: OPTIRAY 320 100ml IV ONE (14:13)
--- NOTE | 2021-01-08 14:22 | CT Scan Report ---
CT OF THE ABDOMEN AND PELVIS WITH CONTRAST CLINICAL HISTORY: Abdominal pain and vomiting. COMPARISON STUDY: CT of the abdomen and pelvis November 28, 2020. TECHNIQUE: Following IV administration of 90 mL of Optiray, axial images of the abdomen and pelvis we re obtained from the lung bases to the proximal femurs. Images were reviewed in the axial, sagittal, and coronal planes. IV contrast was administered without complication. Automated exposure control wa s utilized for the study. A dose lowering technique was utilized adhering to the principles of ALARA . CT DOSE: 425.52 mGycm FINDINGS: Lung bases are unremarkable. No pneumatosis, free air or portal venous gas is present. Size of the spleen is at the upper limits of normal. There is no biliary or pancreatic ductal dilatation. The liver, adrenal glands, kidneys and pancreas are unremarkable. Sensitivity for detection of urina ry calculi is diminished given excreted contrast. No hydronephrosis. The appendix is normal. There is wall thickening of the entire colon and the rectum. This is new since prior CT. There is minimal per icolonic infiltration. No free air or abscess is present. There is no evidence for a bowel obstructio n. Major vasculature is patent. No acute fracture or suspicious lesion is identified within the visua lized skeletal structures. Pelvic calcifications reflect phleboliths. IMPRESSION: Wall thickening of the entire colon and rectum. This represents a nonspecific proctocoli tis, likely infectious or inflammatory in etiology. No abscess. No free air. Normal appendix. ACT 112: Negative or not required by law. Electronically signed by: Pritesh Solano M.D. 01/08/2021 2:20 PM
[2021-01-08 14:31] LABS: Appearance Urine Clear (Clear); Bilirubin Urine Negative (Negative); Blood Urine Negative (Negative); Color Urine Yellow; Glucose Urine UA Negative (Negative); Ketones Urine Trace (Negative); Leukocyte Esterase Urine Negative (Negative); Nitrite Urine Negative (Negative); Protein Urine Negative (Negative); Specific Gravity Urine 1.012 (1.000-1.030); Urobilinogen Urine Negative (Negative)
[2021-01-08] MEDS ORDERED: POTASSIUM CHLORIDE / WTR 10 MEQ/100 ML PLCT IV ONE ×2 (14:34→15:41)
--- NOTE | 2021-01-08 14:55 | History & Physical Report ---
Date of Service January 08, 2021 Assessment & Plan (1) C. difficile colitis: Plan: Severe disease. Significant hypotension/shock at time of ER presentation requiring 3+ liters of fluid to restore normotension. Fortunately her BPs have improved with such. Given the severity of disease will treat with high-dose vancomycin 500mg PO q6h + IV flagyl 500mg q8h. Clear liquids only. Copious IV hydration. KUB x-ray in am to ensure no developing toxic megacolon. Will ask GI to consult for any additional recommendations. Probiotics. Repeat labs am. I am concerned she could have an underlying immune deficiency given her prior h/o tuberculosis, recurrent pneumonias, etc. Will check IgG, IgM, and IgA in the am. Consider HIV testing. (2) Pancolitis: Plan: 2nd to c.diff as in #1 above. (3) Sepsis: Plan: 2nd to #1 above. IV flagyl + PO high-dose vancomycin for c.diff. Copious IV hydration. Place on telemetry. GI consultation. Serial labs. Patient with recent febrile pharyngitis - strep negative (but did not have a culture). Send throat culture. Spleen borderline enlarged on CT -- check monospot, and EBV titers as needed. Blood cultures negative. (4) Acute hypotension: Plan: 2nd to #1/#3 above and severe dehydration. BPs improved with copious IV hydration. Continue NS hydration at 150cc/hr. (5) Hypokalemia: Plan: Replace IV + PO. Repeat BMP and mag in am. (6) Acute pharyngitis: Plan: 12/23/20 rapid strep negative. I cannot find a throat culture from that office visit. s/p 5 days of clindamycin in December - now off antibiotics. Send throat culture. Check monospot; send EBV titers if monospot negative. Plan: IVF- NS with KCL at 150cc/hr; BMP/mag/CBC in am. Pain control- norco prn, morphine prn. DVT proph- low risk, defer on chemical means for now. History of Present Illness Chief Complaint: severe diarrhea, abd cramps, lightheadedness Primary Care Provider: Gaurang Hector, III, DIRECTOR PRESALES 40yo female with h/o tuberculosis requiring 9 months of Rx about 11 years ago, followed by several episodes of pneumonia including fungal pneumonia in the years following her TB -- presents from home with 24 hours of poor appetite, followed by abdominal cramping starting late yesterday, and finally severe diarrhea x 4 episodes beginning this am. Stool is pure liquid and foul- smelling. NO mucous or blood. She was unable to take anything substantial by mouth this am. She did note a low-grade fever in the high 99's this am. She was severely dizzy/lightheaded to the point of near-syncope. She presented to the hospital because of these severe symptoms. Upon ER presentation her initial SBP was upper 60s. She received 3 L of crystalloid with improvement in her SBP to the 110s. Of note - patient states she had a febrile pharyngitis about 2 weeks ago. She was checked for COVID and strep - both negative. However, she did take about 5 days of clindamycin for her throat. She has felt fatigued since the URI started and has felt run down with persistent sore throat. She is unsure if she ever had a throat culture. Denies recent travel. No apparent sick contacts. She is NOT vaccinated against COVID-19. Allergies Allergy/AdvReac Type Severity Reaction Status Date / Time Penicillins Allergy Intermediate HIVES Verified 01/08/21 15:15 Home Medications Medication Instructions Recorded Confirmed Type vitamin B complex 1 cap PO DAILY 09/29/20 01/08/21 History multivitamin 1 tab PO DAILY 11/23/20 01/08/21 History cholecalciferol (vitamin D3) 25 25 mcg PO DAILY 01/08/21 01/08/21 History mcg (1,000 unit) tablet (Vitamin D3) Past Med/Surg History Medical History (Updated 01/08/21 @ 20:02 by Tod Foster) Anemia Anxiety Depression Gestational diabetes hx Pneumonia recurrent pneumonias in her early 30s Tuberculosis 2011 s/p treatment x 9 months Uterine fibroid Surgical History H/O hysterectomy for benign disease TLH for fibroids. H/O tubal ligation H/O wisdom tooth extraction H/O: section History of anesthesia reaction Post-op hypotension that needed to be monitored longer (no further details per PAT RN interview) History of carpal tunnel surgery of right wrist Hx of hand surgery 3 surgies, had pins Hx of lymph node excision abdomen and groin Family History Grandmother (Maternal) Myocardial infarction Aunt Ovarian cancer Maternal Cervical cancer Sister Endometriosis Father Type 1 diabetes Mother Rheumatoid arthritis Other Dyslipidemia Hypertension Denies family history of Prostate cancer Breast cancer Colorectal cancer Uterine cancer Social History Smoking Status: Never smoker Second Hand Exposure: No; Hx Alcohol Use: Yes Alcohol type: beer, wine and hard liquor Alcohol Intake Frequency: 2-4 x/Month Hx Substance Use: No Preferred Language: Maldivian Communication Ability: Effective Visual Impairment: No Limitations Hearing Ability: Normal Relay Tester Helper Required: No Beliefs That Will Affect Care: None marital status: Single Current Living Situation: Family Current Living Situation Comment: lives with 12yo daughter current occupational status: employed 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 [employer] How many Children do You have: 2 Other Information That Helps Us Care for You: No Feels Safe at Home: Yes Safety Concerns: Feels Safe At This Time Childhood Exposure to Second-Hand Smoke: No Dental Care, Regularly: Yes Physical Activity Frequency: Daily Seatbelt Use: always Sunscreen Use: Yes Do you think of yourself as: straight/heterosexual Assistive Devices: Contacts and Glasses Review of Systems Review of Systems: Gen - fatigue, mild weight loss over the last 2 weeks (started with her pharyngitis illness on 12/22), fever (12/22-12/24, then again this am), weakness Eyes - no visual change HENT - no headache, no ear pain; ongoing sore throat and nasal congestion Neck - mild pain this morning Cardiac - no chest pain or palpitations; near-syncope today Pulm - no cough or dyspnea GI - severe abdominal cramps starting last night; nausea, severe diarrhea; no blood per rectum - no dysuria Musculo - no joint pains Neuro - no focal motor weakness Psych - no depression/anxiety Endo - no diabetes Skin - no rash Heme - no bruising Physical Exam Physical Exam: Gen - looks sick, dehydrated, a/o x 3 Eyes - PERRL HENT - MM dry, tonsils injected but no exudate; right tonsil is larger than left tonsil Neck - multiple cervical lymph nodes b/l, no goiter Heart - tachycardia, s1 s2, no murmur Lungs - CTA b/l Abd - mildly distended, BS+, nontender, no HSM Skin - no rash, turgor decreased Musculo - no joint effusions Neuro - strength 5/5 x 4 exts Psych - a/o x 3 Lymph - multiple cervical lymph nodes b/l Results & Data Results & [facility] ([facility] Vital Signs (Past 12 Hours) Vital Signs Temp Pulse Pulse Resp BP BP Pulse Ox 01/08/21 14:24 105 H 16 122/70 95 01/08/21 14:20 107 H 22 98 01/08/21 14:16 105 H 26 H 96 01/08/21 14:02 98 01/08/21 14:00 111 H 14 122/70 01/08/21 13:50 107 H 15 98 01/08/21 13:44 117 H 22 95 01/08/21 13:34 108 H 20 98/69 L 95 01/08/21 13:30 108 H 20 98/69 L 99 01/08/21 13:20 108 H 25 H 97 01/08/21 13:10 107 H 19 99 01/08/21 13:00 97 H 16 97 01/08/21 12:50 100 H 14 98 01/08/21 12:45 95 H 17 100 01/08/21 12:23 36.7 C 120 H 24 69/40 L 100 Laboratory Results Laboratory Results - last 24 hr 01/08/21 01/08/21 01/08/21 12:45 12:45 12:45 WBC 20.50 H RBC 4.68 Hgb 13.8 Hct 39.9 MCV 85.3 MCH 29.5 MCHC 34.6 RDW Std Deviation 40.0 RDW Coeff of Fantasma 12.9 Plt Count 313 MPV 10.5 H Immature Gran % (Auto) 0.3 Neut % (Auto) 85.6 Lymph % (Auto) 7.9 Chase % (Auto) 5.1 Eos % (Auto) 1.0 Baso % (Auto) 0.1 Neut # (Auto) 17.56 H Lymph # (Auto) 1.61 Chase # (Auto) 1.04 H Eos # (Auto) 0.20 Baso # (Auto) 0.03 Immature Gran # (Auto) 0.06 H PT 10.0 INR 1.0 APTT 22.0 PTT Ratio 0.8 Sodium 139 Potassium 3.1 L Chloride 108 H Carbon Dioxide 22 Anion Gap 9.0 BUN 11 Creatinine 0.87 Est Cr Clr Drug Dosing 68.7 Est GFR ( Amer) 97.3 Est GFR (Non-Af Amer) 83.9 BUN/Creatinine Ratio 13.1 Glucose 133 H Lactate Calcium 8.9 Magnesium 2.0 Total Bilirubin 1.4 H AST 10 L ALT 19 Alkaline Phosphatase 60 Troponin I < 0.015 Total Protein 7.3 Albumin 3.7 Globulin 3.6 Albumin/Globulin Ratio 1.0 Procalcitonin Urine Color Urine Appearance Urine pH Ur Specific [place] Urine Protein Urine Glucose (UA) Urine Ketones Urine Blood Urine Nitrite Urine Bilirubin Urine Urobilinogen Ur Leukocyte Esterase Stl C. diff Tox B Gene Stl C.difficile Tox A&B Salicylates Acetaminophen COVID-19 Eval Order SARS-CoV-2 (PCR) EBV Capsid Ag IgG Ab EBV Capsid Ag IgM Ab EBV EA Restrict+Diffuse EBV Nuclear Antigen Ab EBV Antibody Interp Monoscreen 01/08/21 01/08/21 01/08/21 12:45 12:45 12:45 WBC RBC Hgb Hct MCV MCH MCHC RDW Std Deviation RDW Coeff of Fantasma Plt Count MPV Immature Gran % (Auto) Neut % (Auto) Lymph % (Auto) Chase % (Auto) Eos % (Auto) Baso % (Auto) Neut # (Auto) Lymph # (Auto) Chase # (Auto) Eos # (Auto) Baso # (Auto) Immature Gran # (Auto) PT INR APTT PTT Ratio Sodium Potassium Chloride Carbon Dioxide Anion Gap BUN Creatinine Est Cr Clr Drug Dosing Est GFR ( Amer) Est GFR (Non-Af Amer) BUN/Creatinine Ratio Glucose Lactate Calcium Magnesium Total Bilirubin AST ALT Alkaline Phosphatase Troponin I Total Protein Albumin Globulin Albumin/Globulin Ratio Procalcitonin < 0.05 Urine Color Urine Appearance Urine pH Ur Specific [place] Urine Protein Urine Glucose (UA) Urine Ketones Urine Blood Urine Nitrite Urine Bilirubin Urine Urobilinogen Ur Leukocyte Esterase Stl C. diff Tox B Gene Stl C.difficile Tox A&B Salicylates < 1.7 L Acetaminophen < 2 L COVID-19 Eval Order SARS-CoV-2 (PCR) EBV Capsid Ag IgG Ab EBV Capsid Ag IgM Ab EBV EA Restrict+Diffuse EBV Nuclear Antigen Ab EBV Antibody Interp Monoscreen Negative 01/08/21 01/08/21 01/08/21 12:45 12:48 12:48 WBC RBC Hgb Hct MCV MCH MCHC RDW Std Deviation RDW Coeff of Fantasma Plt Count MPV Immature Gran % (Auto) Neut % (Auto) Lymph % (Auto) Chase % (Auto) Eos % (Auto) Baso % (Auto) Neut # (Auto) Lymph # (Auto) Chase # (Auto) Eos # (Auto) Baso # (Auto) Immature Gran # (Auto) PT INR APTT PTT Ratio Sodium Potassium Chloride Carbon Dioxide Anion Gap BUN Creatinine Est Cr Clr Drug Dosing Est GFR ( Amer) Est GFR (Non-Af Amer) BUN/Creatinine Ratio Glucose Lactate Calcium Magnesium Total Bilirubin AST ALT Alkaline Phosphatase Troponin I Total Protein Albumin Globulin Albumin/Globulin Ratio Procalcitonin Urine Color Urine Appearance Urine pH Ur Specific [place] Urine Protein Urine Glucose (UA) Urine Ketones Urine Blood Urine Nitrite Urine Bilirubin Urine Urobilinogen Ur Leukocyte Esterase Stl C. diff Tox B Gene Stl C.difficile Tox A&B Salicylates Acetaminophen COVID-19 Eval Order Covid19 at [facility] SARS-CoV-2 (PCR) NEGATIVE EBV Capsid Ag IgG Ab Pending EBV Capsid Ag IgM Ab Pending EBV EA Restrict+Diffuse Pending EBV Nuclear Antigen Ab Pending EBV Antibody Interp Pending Monoscreen 01/08/21 01/08/21 01/08/21 13:11 13:50 14:47 WBC RBC Hgb Hct MCV MCH MCHC RDW Std Deviation RDW Coeff of Fantasma Plt Count MPV Immature Gran % (Auto) Neut % (Auto) Lymph % (Auto) Chase % (Auto) Eos % (Auto) Baso % (Auto) Neut # (Auto) Lymph # (Auto) Chase # (Auto) Eos # (Auto) Baso # (Auto) Immature Gran # (Auto) PT INR APTT PTT Ratio Sodium Potassium Chloride Carbon Dioxide Anion Gap BUN Creatinine Est Cr Clr Drug Dosing Est GFR ( Amer) Est GFR (Non-Af Amer) BUN/Creatinine Ratio Glucose Lactate 1.1 Calcium Magnesium Total Bilirubin AST ALT Alkaline Phosphatase Troponin I Total Protein Albumin Globulin Albumin/Globulin Ratio Procalcitonin Urine Color Yellow Urine Appearance Clear Urine pH 6.0 Ur Specific [place] 1.012 Urine Protein Negative Urine Glucose (UA) Negative Urine Ketones Trace H Urine Blood Negative Urine Nitrite Negative Urine Bilirubin Negative Urine Urobilinogen Negative Ur Leukocyte Esterase Negative Stl C. diff Tox B Gene Positive Cdiff Gene H Stl C.difficile Tox A&B Positive Cdiff Toxin A* Salicylates Acetaminophen COVID-19 Eval Order SARS-CoV-2 (PCR) EBV Capsid Ag IgG Ab EBV Capsid Ag IgM Ab EBV EA Restrict+Diffuse EBV Nuclear Antigen Ab EBV Antibody Interp Monoscreen Diagnostic Findings Abdomen/Pelvis CT 01/08/21 12:33 CT OF THE ABDOMEN AND PELVIS WITH CONTRAST CLINICAL HISTORY: Abdominal pain and vomiting. COMPARISON STUDY: CT of the abdomen and pelvis November 28, 2020. TECHNIQUE: Following IV administration of 90 mL of Optiray, axial images of the abdomen and pelvis were obtained from the lung bases to the proximal femurs. Images were reviewed in the axial, sagittal, and coronal planes. IV contrast was administered without complication. Automated exposure control was utilized for the study. A dose lowering technique was utilized adhering to the principles of ALARA. CT DOSE: 425.52 mGycm FINDINGS: Lung bases are unremarkable. No pneumatosis, free air or portal venous gas is present. Size of the spleen is at the upper limits of normal. There is no biliary or pancreatic ductal dilatation. The liver, adrenal glands, kidneys and pancreas are unremarkable. Sensitivity for detection of urinary calculi is diminished given excreted contrast. No hydronephrosis. The appendix is normal. There is wall thickening of the entire colon and the rectum. This is new since prior CT. There is minimal pericolonic infiltration. No free air or abscess is present. There is no evidence for a bowel obstruction. Major vasculature is patent. No acute fracture or suspicious lesion is identified within the visualized skeletal structures. Pelvic calcifications reflect phleboliths. IMPRESSION: Wall thickening of the entire colon and rectum. This represents a nonspecific proctocolitis, likely infectious or inflammatory in etiology. No abscess. No free air. Normal appendix. ACT 112: Negative or not required by law. Electronically signed by: Pritesh Solano M.D. 01/08/2021 2:20 PM Chest X-Ray 01/08/21 12:33 XR chest 1V portable CLINICAL HISTORY: SEPSIS COMPARISON STUDY: Chest radiograph June 06, 2017. FINDINGS: Lung volumes are normal. Lungs are clear. There is no pneumothorax or pleural effusion. Cardiac size is normal. Mediastinal contours are normal. There is no evidence for pulmonary edema. Nipple shadows are incidentally noted. IMPRESSION: No acute cardiopulmonary findings. ACT 112: Negative or not required by law. Electronically signed by: Pritesh Solano M.D. 01/08/2021 2:07 PM PG Care Time/CCT Total # of Minutes Spent Total Time Spent with Patient: Total time spent is greater than 50% in coordination of care (as documented) at patient's floor/unit and/or counseling patient: Coding Level of Care Code 87116 Initial Inpt Care Lvl 3 Diagnoses Pancolitis K51.00 Hypokalemia E87.6 Acute hypotension I95.9 Acute pharyngitis J02.9 C. difficile colitis A04.72 Sepsis A41.9
[2021-01-08 16:10] LABS: Cdiff Antigen Positive
[2021-01-08 16:11] LABS: Cdiff Toxin A+B Positive Cdiff Toxin (Negative)
[2021-01-08] MEDS ORDERED: RASPBERRY SYRUP 5 ML UDP PO STA (16:33)
[2021-01-08] MEDS ORDERED: VANCOMYCIN HCL 500 MG/10 ML SOLN PO STA (16:33)
[2021-01-08] MEDS ORDERED: metroNIDAZOLE 500 MG/100 ML BAG IV STA (16:33)
[2021-01-08] MEDS ORDERED: ONDANSETRON INJ 2 MG/ML 2 ML VIAL IV PRN (19:10)
[2021-01-08] MEDS ORDERED: HYDROCODONE/ACETAMOPHEN 5/325MG TAB PO PRN (19:10)
[2021-01-08] MEDS ORDERED: MoRPHine SULFATE 2 MG/ML CARP IV PRN (19:10)
[2021-01-08] MEDS: NSS + 20MEQ KCL 20 MEQ/1,000 ML BAG IV SCH (20:20)
[2021-01-08] MEDS: FAMOTIDINE 20 MG in SYRINGE 3 ML IV SCH (20:20)
[2021-01-08] MEDS: POTASSIUM CHLORIDE 10 MEQ TABCR PO SCH (20:23)
[2021-01-08] MEDS: ACETAMINOPHEN 325 MG TAB PO PRN (20:28)
[2021-01-08] MEDS: VANCOMYCIN HCL 500 MG/10 ML SOLN PO SCH (22:09)
[2021-01-08] MEDS: RASPBERRY SYRUP 5 ML UDP PO SCH (22:09)
[2021-01-09] MEDS: RASPBERRY SYRUP 5 ML UDP PO SCH ×5 (00:20→23:48)
[2021-01-09] MEDS: VANCOMYCIN HCL 500 MG/10 ML SOLN PO SCH ×5 (00:20→23:48)
[2021-01-09] MEDS ORDERED: metroNIDAZOLE 500 MG/100 ML BAG IV SCH (01:00)
[2021-01-09] MEDS: metroNIDAZOLE 500 MG TAB PO SCH ×4 (01:19→17:18)
[2021-01-09] MEDS: NSS + 20MEQ KCL 20 MEQ/1,000 ML BAG IV SCH (03:05)
[2021-01-09] MEDS ORDERED: SODIUM CHLORIDE 0.9% 1000ML 1,000 ML IV ONE (03:15)
[2021-01-09 06:25] LABS: Basophils # (auto) 0.02 K/uL (0-0.2); Basophils % (auto) 0.2 %; Eosinophils # (auto) 0.01 K/uL (0-0.5); Eosinophils % (auto) 0.1 %; Hematocrit (blood only) 32.7 % (37-47); Hemoglobin 11.1 g/dL (12.0-16.0); Immature Granulocytes # (auto) 0.02 K/uL (0.00-0.02); Immature Granulocytes % (auto) 0.2 %; Lymphocytes # (auto) 0.74 K/uL (1.2-3.4); Lymphocytes % (auto) 7.7 %; Mean Corpuscular Hemoglobin 29.1 pg (25-34); Mean Corpuscular Hgb Conc 33.9 g/dL (32-36); Mean Corpuscular Volume 85.8 fL (80-100); Mean Platelet Volume 10.4 fL (7.4-10.4); Monocytes # (auto) 0.38 K/uL (0.11-0.59); Neutrophils # (auto) 8.43 K/uL (1.4-6.5); Neutrophils % (auto) 87.8 %; Platelet Count 198 K/uL (130-400); RDW Standard Deviation 41.1 fL (36.4-46.3); Red Blood Count 3.81 M/uL (4.2-5.4)
[2021-01-09 06:43] LABS: BUN Creatinine Ratio 6.3 (10-20); Calcium 7.9 mg/dl (8.5-10.1); Creatinine Clr Calc Pharmacy 104.5 ml/min; Est GFR (African American) 131.6 ml/min; Est GFR (Non-African American) 113.6 ml/min; Magnesium 1.6 mg/dl (1.8-2.4); Potassium 3.5 mmol/L (3.5-5.1)
--- NOTE | 2021-01-09 06:50 | Electrocardiogram Report ---
Test Reason : Blood Pressure : / mmHG Vent. Rate : 093 BPM Atrial Rate : 093 BPM P-R Int : 106 ms QRS Dur : 084 ms QT Int : 368 ms P-R-T Axes : 048 047 050 degrees QTc Int : 457 ms Sinus rhythm with short MT Cannot rule out Anterior infarct (cited on or before 11-AUG-2014) Abnormal ECG When compared with ECG of 28-NOV-2020 05:50, No significant change was found Confirmed by Russ Sahu ([id number]) on 01/09/2021 6:50:07 AM Referred By: Confirmed By:Russ Sahu
[2021-01-09 07:05] LABS: Immunoglobulin A 85.3 mg/dl (70-400); Immunoglobulin M 77.7 mg/dl (40-230)
--- NOTE | 2021-01-09 07:51 | XRay Report ---
KUB HISTORY: Acute generalized abdominal pain with reported colitis c diff colitis, assess colonic bowel gas pattern COMPARISON: CT abdomen and pelvis 01/08/2021 FINDINGS: Nonobstructive bowel gas pattern. Sigmoid colon wall thickening is better appreciated on co mparison CT. Pelvic basin phleboliths are redemonstrated. No renal calculi. No ureteral calculi. No pneumoperitoneum or pneumatosis. No fracture. IMPRESSION: Nonobstructive bowel gas pattern. ACT 112: Negative or not required by law. The above report was generated using voice recognition software. It may contain grammatical, syntax o r spelling errors. Electronically signed by: Wilfredo Lira M.D. 01/09/2021 7:49 AM
[2021-01-09] MEDS: FAMOTIDINE 20 MG in SYRINGE 3 ML IV SCH ×2 (08:02→20:50)
[2021-01-09] MEDS: VITAMIN B COMPLEX TAB PO SCH ×2 (08:03→09:00)
[2021-01-09] MEDS: ADVANCED PROBIOTIC 1250 MG CAPSULE PO SCH ×2 (08:03→09:00)
[2021-01-09] MEDS: MULTIVITAMIN TAB PO SCH ×2 (08:03→08:59)
[2021-01-09] MEDS: CHOLECALCIFEROL 1,000 UNITS 25 MCG TAB PO SCH ×2 (08:03→08:59)
[2021-01-09] MEDS: POTASSIUM CHLORIDE 10 MEQ TABCR PO SCH ×3 (08:04→20:40)
--- NOTE | 2021-01-09 10:56 | Gastrointestinal Consultation ---
Date of Consultation January 09, 2021 Assessment & Plan (1) Clostridium difficile colitis: Severe (complicated based on having fever) C.diff colitis but no signs of ileus, megacolon or surgical abdomen. Recommend: PO Vancomycin 500 mg QID IV Flagyl Needs total 14 days of therapy. Serial abdominal exams. Seems clinically improving hence can continue liquid diet and advance slowly as tolerated. Recall GI if needed. History of Present Illness Attending Physician: Castro Petty History of Present Illness 40 years old female patient admitted to the hospital with C.diff colitis after using Clindamycin. Had fever and leukocytosis, otherwise normal Albumin and kidney function. Repeat KUB today with no megacolon. Feeling better and diarrhea slightly slowing down. No significant abdominal pain, denies nausea or vomiting. Allergies Allergy/AdvReac Type Severity Reaction Status Date / Time Penicillins Allergy Intermediate HIVES Verified 01/08/21 15:15 Home Medications Medication Instructions Recorded Confirmed Type vitamin B complex 1 cap PO DAILY 09/29/20 01/08/21 History multivitamin 1 tab PO DAILY 11/23/20 01/08/21 History cholecalciferol (vitamin D3) 25 25 mcg PO DAILY 01/08/21 01/08/21 History mcg (1,000 unit) tablet (Vitamin D3) Patient History Medical History (Updated 01/09/21 @ 06:32 by Ant Pruitt DO) Anemia Anxiety Depression Gestational diabetes hx Pneumonia recurrent pneumonias in her early 30s Tuberculosis 2011 s/p treatment x 9 months Uterine fibroid Surgical History H/O hysterectomy for benign disease TLH for fibroids. H/O tubal ligation H/O wisdom tooth extraction H/O: section History of anesthesia reaction Post-op hypotension that needed to be monitored longer (no further details per PAT RN interview) History of carpal tunnel surgery of right wrist Hx of hand surgery 3 surgies, had pins Hx of lymph node excision abdomen and groin Family History Grandmother (Maternal) Myocardial infarction Aunt Ovarian cancer Maternal Cervical cancer Sister Endometriosis Father Type 1 diabetes Mother Rheumatoid arthritis Other Dyslipidemia Hypertension Denies family history of Prostate cancer Breast cancer Colorectal cancer Uterine cancer Social History Smoking Status: Former smoker Cigarettes Per Day: 0.5; Smoking End Date: 2012; Second Hand Exposure: No; Do You Dip or Chew Tobacco: No; Tobacco Cessation Education Requested by Patient: No Hx Alcohol Use: Yes Alcohol type: wine Alcohol Intake Frequency: 2-4 x/Month Hx Substance Use: No Preferred Language: Welsh Communication Ability: Effective Visual Impairment: No Limitations Hearing Ability: Normal Airflight Attendants Supervisor Required: No Beliefs That Will Affect Care: None marital status: Single Current Living Situation: Family Current Living Situation Comment: Lives 2 peyton (20 yrs old, 13 yrs old) current occupational status: employed 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 [employer] How many Children do You have: 2 Other Information That Helps Us Care for You: No Feels Safe at Home: Yes Safety Concerns: Feels Safe At This Time Childhood Exposure to Second-Hand Smoke: No Dental Care, Regularly: Yes Physical Activity Frequency: Daily Seatbelt Use: always Sunscreen Use: Yes Do you think of yourself as: straight/heterosexual Assistive Devices: None Review of Systems Constitutional: no fever, no chills, no fatigue and no weight loss Eyes: no eye pain and no worsening vision Ear, Nose, Mouth, Throat: no tinnitus, no dizziness, no nasal discharge and no epistaxis Respiratory: no cough, no dyspnea, no dyspnea on exertion and no wheezing Cardiovascular: no chest pain, no orthopnea, no palpitations and no edema Gastrointestinal: as per Subjective / HPI Genitourinary: no dysuria, no urinary frequency, no urinary incontinence and no hematuria Musculoskeletal: no stiffness and no myalgia Neurologic: no localized weakness, no paralysis, no tremor(s) and no headache(s) Endocrine: no polydipsia and no polyuria Hematologic / Lymphatic: no easy bleeding and no night sweats Physical Exam Constitutional: + well hydrated, cooperative and comfortable Eyes: PERRL, conjunctivae normal, anicteric sclerae ENMT: external ear and nose normal, oropharynx normal Neck: normal visual inspection and trachea midline Respiratory: normal respiratory effort, lungs clear to auscultation Auscultation: no wheezes Cardiovascular: RRR, no murmur, no edema Gastrointestinal (Abdomen): normal bowel sounds, soft, nontender, no hepatosplenomegaly Musculoskeletal: no cyanosis or clubbing, extremities motor strength 5/5 Skin: no rashes, warm and dry Neurologic: awake; no focal motor deficits Motor/Sensory: no tremor Results & Data ([facility]) Vital Signs (Past 12 Hours) Vital Signs Temp Pulse Pulse Resp BP Pulse Ox 01/09/21 06:10 37.1 C 81 18 96/62 L 97 01/09/21 03:24 37.4 C 84 18 91/55 L 96 01/09/21 01:00 93 H Laboratory Results Laboratory Results - last 24 hr 01/08/21 01/08/21 01/08/21 12:45 12:45 12:45 WBC 20.50 H RBC 4.68 Hgb 13.8 Hct 39.9 MCV 85.3 MCH 29.5 MCHC 34.6 RDW Std Deviation 40.0 RDW Coeff of Fantasma 12.9 Plt Count 313 MPV 10.5 H Immature Gran % (Auto) 0.3 Neut % (Auto) 85.6 Lymph % (Auto) 7.9 Knott % (Auto) 5.1 Eos % (Auto) 1.0 Baso % (Auto) 0.1 Neut # (Auto) 17.56 H Lymph # (Auto) 1.61 Knott # (Auto) 1.04 H Eos # (Auto) 0.20 Baso # (Auto) 0.03 Immature Gran # (Auto) 0.06 H PT 10.0 INR 1.0 APTT 22.0 PTT Ratio 0.8 Sodium 139 Potassium 3.1 L Chloride 108 H Carbon Dioxide 22 Anion Gap 9.0 BUN 11 Creatinine 0.87 Est Cr Clr Drug Dosing 68.7 Est GFR ( Amer) 97.3 Est GFR (Non-Af Amer) 83.9 BUN/Creatinine Ratio 13.1 Glucose 133 H Lactate Calcium 8.9 Magnesium 2.0 Total Bilirubin 1.4 H AST 10 L ALT 19 Alkaline Phosphatase 60 Troponin I < 0.015 Total Protein 7.3 Albumin 3.7 Globulin 3.6 Albumin/Globulin Ratio 1.0 Procalcitonin Urine Color Urine Appearance Urine pH Ur Specific Anna Urine Protein Urine Glucose (UA) Urine Ketones Urine Blood Urine Nitrite Urine Bilirubin Urine Urobilinogen Ur Leukocyte Esterase Stl C. diff Tox B Gene Stl C.difficile Tox A&B Salicylates Acetaminophen IgG IgA IgM COVID-19 Eval Order SARS-CoV-2 (PCR) EBV Capsid Ag IgG Ab EBV Capsid Ag IgM Ab EBV EA Restrict+Diffuse EBV Nuclear Antigen Ab EBV Antibody Interp Monoscreen 01/08/21 01/08/21 01/08/21 12:45 12:45 12:45 WBC RBC Hgb Hct MCV MCH MCHC RDW Std Deviation RDW Coeff of Fantasma Plt Count MPV Immature Gran % (Auto) Neut % (Auto) Lymph % (Auto) Knott % (Auto) Eos % (Auto) Baso % (Auto) Neut # (Auto) Lymph # (Auto) Knott # (Auto) Eos # (Auto) Baso # (Auto) Immature Gran # (Auto) PT INR APTT PTT Ratio Sodium Potassium Chloride Carbon Dioxide Anion Gap BUN Creatinine Est Cr Clr Drug Dosing Est GFR ( Amer) Est GFR (Non-Af Amer) BUN/Creatinine Ratio Glucose Lactate Calcium Magnesium Total Bilirubin AST ALT Alkaline Phosphatase Troponin I Total Protein Albumin Globulin Albumin/Globulin Ratio Procalcitonin < 0.05 Urine Color Urine Appearance Urine pH Ur Specific Anna Urine Protein Urine Glucose (UA) Urine Ketones Urine Blood Urine Nitrite Urine Bilirubin Urine Urobilinogen Ur Leukocyte Esterase Stl C. diff Tox B Gene Stl C.difficile Tox A&B Salicylates < 1.7 L Acetaminophen < 2 L IgG IgA IgM COVID-19 Eval Order SARS-CoV-2 (PCR) EBV Capsid Ag IgG Ab EBV Capsid Ag IgM Ab EBV EA Restrict+Diffuse EBV Nuclear Antigen Ab EBV Antibody Interp Monoscreen Negative 01/08/21 01/08/21 01/08/21 12:45 12:48 12:48 WBC RBC Hgb Hct MCV MCH MCHC RDW Std Deviation RDW Coeff of Fantasma Plt Count MPV Immature Gran % (Auto) Neut % (Auto) Lymph % (Auto) Knott % (Auto) Eos % (Auto) Baso % (Auto) Neut # (Auto) Lymph # (Auto) Knott # (Auto) Eos # (Auto) Baso # (Auto) Immature Gran # (Auto) PT INR APTT PTT Ratio Sodium Potassium Chloride Carbon Dioxide Anion Gap BUN Creatinine Est Cr Clr Drug Dosing Est GFR ( Amer) Est GFR (Non-Af Amer) BUN/Creatinine Ratio Glucose Lactate Calcium Magnesium Total Bilirubin AST ALT Alkaline Phosphatase Troponin I Total Protein Albumin Globulin Albumin/Globulin Ratio Procalcitonin Urine Color Urine Appearance Urine pH Ur Specific Anna Urine Protein Urine Glucose (UA) Urine Ketones Urine Blood Urine Nitrite Urine Bilirubin Urine Urobilinogen Ur Leukocyte Esterase Stl C. diff Tox B Gene Stl C.difficile Tox A&B Salicylates Acetaminophen IgG IgA IgM COVID-19 Eval Order Covid19 at [facility] SARS-CoV-2 (PCR) NEGATIVE EBV Capsid Ag IgG Ab Pending EBV Capsid Ag IgM Ab Pending EBV EA Restrict+Diffuse Pending EBV Nuclear Antigen Ab Pending EBV Antibody Interp Pending Monoscreen 01/08/21 01/08/21 01/08/21 13:11 13:50 14:47 WBC RBC Hgb Hct MCV MCH MCHC RDW Std Deviation RDW Coeff of Fantasma Plt Count MPV Immature Gran % (Auto) Neut % (Auto) Lymph % (Auto) Knott % (Auto) Eos % (Auto) Baso % (Auto) Neut # (Auto) Lymph # (Auto) Knott # (Auto) Eos # (Auto) Baso # (Auto) Immature Gran # (Auto) PT INR APTT PTT Ratio Sodium Potassium Chloride Carbon Dioxide Anion Gap BUN Creatinine Est Cr Clr Drug Dosing Est GFR ( Amer) Est GFR (Non-Af Amer) BUN/Creatinine Ratio Glucose Lactate 1.1 Calcium Magnesium Total Bilirubin AST ALT Alkaline Phosphatase Troponin I Total Protein Albumin Globulin Albumin/Globulin Ratio Procalcitonin Urine Color Yellow Urine Appearance Clear Urine pH 6.0 Ur Specific Anna 1.012 Urine Protein Negative Urine Glucose (UA) Negative Urine Ketones Trace H Urine Blood Negative Urine Nitrite Negative Urine Bilirubin Negative Urine Urobilinogen Negative Ur Leukocyte Esterase Negative Stl C. diff Tox B Gene Positive Cdiff Gene H Stl C.difficile Tox A&B Positive Cdiff Toxin A* Salicylates Acetaminophen IgG IgA IgM COVID-19 Eval Order SARS-CoV-2 (PCR) EBV Capsid Ag IgG Ab EBV Capsid Ag IgM Ab EBV EA Restrict+Diffuse EBV Nuclear Antigen Ab EBV Antibody Interp Monoscreen 01/09/21 01/09/21 05:43 05:43 WBC 9.60 D RBC 3.81 L Hgb 11.1 L Hct 32.7 L MCV 85.8 MCH 29.1 MCHC 33.9 RDW Std Deviation 41.1 RDW Coeff of Fantasma 13.0 Plt Count 198 MPV 10.4 Immature Gran % (Auto) 0.2 Neut % (Auto) 87.8 Lymph % (Auto) 7.7 Knott % (Auto) 4.0 Eos % (Auto) 0.1 Baso % (Auto) 0.2 Neut # (Auto) 8.43 H Lymph # (Auto) 0.74 L Knott # (Auto) 0.38 Eos # (Auto) 0.01 Baso # (Auto) 0.02 Immature Gran # (Auto) 0.02 PT INR APTT PTT Ratio Sodium 140 Potassium 3.5 Chloride 114 H Carbon Dioxide 19 L Anion Gap 7.0 BUN 4 L D Creatinine 0.62 Est Cr Clr Drug Dosing 104.5 Est GFR ( Amer) 131.6 Est GFR (Non-Af Amer) 113.6 BUN/Creatinine Ratio 6.3 L Glucose 100 H Lactate Calcium 7.9 L Magnesium 1.6 L Total Bilirubin AST ALT Alkaline Phosphatase Troponin I Total Protein Albumin Globulin Albumin/Globulin Ratio Procalcitonin Urine Color Urine Appearance Urine pH Ur Specific Anna Urine Protein Urine Glucose (UA) Urine Ketones Urine Blood Urine Nitrite Urine Bilirubin Urine Urobilinogen Ur Leukocyte Esterase Stl C. diff Tox B Gene Stl C.difficile Tox A&B Salicylates Acetaminophen IgG 663.0 L IgA 85.3 IgM 77.7 COVID-19 Eval Order SARS-CoV-2 (PCR) EBV Capsid Ag IgG Ab EBV Capsid Ag IgM Ab EBV EA Restrict+Diffuse EBV Nuclear Antigen Ab EBV Antibody Interp Monoscreen
[2021-01-09] MEDS: ACETAMINOPHEN 325 MG TAB PO PRN (14:11)
--- NOTE | 2021-01-09 21:03 | Hospitalist Progress Note ---
Date of Service January 09, 2021 Assessment & Plan (1) C. difficile colitis: Plan: Severe disease. no signs of ileus, megacolon or surgical abdomen. Blood pressure has improved after fluid resuscitation. treat with high-dose vancomycin 500mg PO q6h + IV flagyl 500mg q8h. advance diet as tolerated appreciate inpt from [facility]. I am concerned she could have an underlying immune deficiency given her prior h/o tuberculosis, recurrent pneumonias, etc. Will check IgG, IgM, and IgA in the am. Consider HIV testing. (2) Pancolitis: Plan: 2nd to c.diff as in #1 above. (3) Sepsis: Plan: 2nd to #1 above. IV flagyl + PO high-dose vancomycin for c.diff. Copious IV hydration. Place on telemetry. GI consultation. Serial labs. Patient with recent febrile pharyngitis - strep negative (but did not have a culture). Send throat culture. Spleen borderline enlarged on CT -- check monospot, and EBV titers as needed. Blood cultures negative. (4) Acute hypotension: Plan: 2nd to #1/#3 above and severe dehydration. BPs improved with copious IV hydration. Continue NS hydration at 150cc/hr. (5) Hypokalemia: Plan: repeat BMP in AM. (6) Acute pharyngitis: Plan: 12/23/20 rapid strep negative. I cannot find a throat culture from that office visit. s/p 5 days of clindamycin in December - now off antibiotics. Send throat culture. Check monospot; send EBV titers if monospot negative. Plan: IVF- NS with KCL at 150cc/hr; BMP/mag/CBC in am. Pain control- norco prn, morphine prn. DVT proph- low risk, defer on chemical means for now. Admission and Anticipated Discharge Date Admission Date: January 08, 2021 Subjective 40 yo female reports her stools have become less frequent. She states her diarrhea was severe after breakfast, but it improved. Review of Systems Review of Systems: All systems reviewed & are unremarkable except as noted in HPI & below Physical Exam Physical Exam: Gen - Patient no longer appears sick, a/o x 3 Eyes - PERRL HENT -Moist MM Neck - multiple cervical lymph nodes b/l, no goiter Heart - tachycardia, s1 s2, no murmur Lungs - CTA b/l Abd - mildly distended, BS+, nontender, no HSM Skin - no rash, turgor decreased Musculo - no joint effusions Neuro - strength 5/5 x 4 exts Psych - a/o x 3 Lymph - multiple cervical lymph nodes b/l Results & Data Results & Data ([facility]) Vital Signs (Past 12 Hours) Vital Signs Temp Pulse Resp BP Pulse Ox 01/09/21 19:32 36.3 C L 78 18 102/71 98 01/09/21 15:32 36.3 C L 77 18 98/62 L 97 01/09/21 12:06 37.1 C 85 18 102/61 96 PG Care Time/CCT Total # of Minutes Spent Total Time Spent with Patient: Total time spent is greater than 50% in coordination of care (as documented) at patient's floor/unit and/or counseling patient: Coding Level of Care Code 50003 Subseq Hosp Care Lvl 2 Diagnoses C. difficile colitis A04.72 Pancolitis K51.00 Sepsis A41.9 Acute hypotension I95.9 Hypokalemia E87.6 Acute pharyngitis J02.9 Time Spent (min) 25
[2021-01-10] MEDS: metroNIDAZOLE 500 MG TAB PO SCH ×3 (00:02→17:28)
[2021-01-10] MEDS: RASPBERRY SYRUP 5 ML UDP PO SCH ×4 (06:24→22:34)
[2021-01-10] MEDS: VANCOMYCIN HCL 500 MG/10 ML SOLN PO SCH ×4 (06:24→22:35)
[2021-01-10 08:46] LABS: Hematocrit (blood only) 33.3 % (37-47); Hemoglobin 11.1 g/dL (12.0-16.0); Mean Corpuscular Hemoglobin 29.3 pg (25-34); Mean Corpuscular Hgb Conc 33.3 g/dL (32-36); Mean Corpuscular Volume 87.9 fL (80-100); Mean Platelet Volume 10.5 fL (7.4-10.4); Platelet Count 204 K/uL (130-400); RDW Coefficient of Variation 13.2 % (11.5-14.5); RDW Standard Deviation 42.1 fL (36.4-46.3); Red Blood Count 3.79 M/uL (4.2-5.4); White Blood Count 3.65 K/uL (4.8-10.8)
[2021-01-10 08:54] LABS: Calcium 8.3 mg/dl (8.5-10.1); Creatinine Clr Calc Pharmacy 89.2 ml/min; Est GFR (African American) 128.3 ml/min; Est GFR (Non-African American) 110.7 ml/min; Potassium 3.6 mmol/L (3.5-5.1)
[2021-01-10] MEDS: FAMOTIDINE 20 MG in SYRINGE 3 ML IV SCH ×2 (09:11→20:48)
[2021-01-10] MEDS: CHOLECALCIFEROL 1,000 UNITS 25 MCG TAB PO SCH (09:13)
[2021-01-10] MEDS: POTASSIUM CHLORIDE 10 MEQ TABCR PO SCH ×2 (09:13→22:35)
[2021-01-10] MEDS: MULTIVITAMIN TAB PO SCH (09:13)
[2021-01-10] MEDS: ADVANCED PROBIOTIC 1250 MG CAPSULE PO SCH (09:13)
[2021-01-10] MEDS: VITAMIN B COMPLEX TAB PO SCH (09:13)
--- NOTE | 2021-01-10 20:38 | Hospitalist Progress Note ---
Date of Service January 10, 2021 Assessment & Plan (1) C. difficile colitis: Plan: This occuered after clindamycin regimen. Severe disease. no signs of ileus, megacolon or surgical abdomen. Blood pressure has improved after fluid resuscitation. treat with high-dose vancomycin 500mg PO q6h + IV flagyl 500mg q8h. advance diet as tolerated appreciate inpt from [facility]. I am concerned she could have an underlying immune deficiency given her prior h/o tuberculosis, recurrent pneumonias, etc. checked IgG, IgM, and IgA ordered HIV testing in AM. obtained consent. discussed home care to decrease spread at home If patient continued to improve, may transition to oral and discharge patient in AM. (2) Pancolitis: Plan: 2nd to c.diff as in #1 above. (3) Sepsis: Plan: 2nd to #1 above. IV flagyl + PO high-dose vancomycin for c.diff. Copious IV hydration. Place on telemetry. GI consultation. Serial labs. Patient with recent febrile pharyngitis - strep negative (but did not have a culture). Send throat culture. Spleen borderline enlarged on CT -- check monospot, and EBV titers as needed. Blood cultures negative. (4) Acute hypotension: Plan: 2nd to #1/#3 above and severe dehydration. BPs improved with copious IV hydration. (5) Hypokalemia: Plan: improved (6) Acute pharyngitis: Plan: 12/23/20 rapid strep negative. I cannot find a throat culture from that office visit. s/p 5 days of clindamycin in December - now off antibiotics. Send throat culture. Check monospot; send EBV titers if monospot negative. Plan: IVF- NS with KCL at 150cc/hr; BMP/mag/CBC in am. Pain control- norco prn, morphine prn. DVT proph- low risk, defer on chemical means for now. Admission and Anticipated Discharge Date Admission Date: January 08, 2021 Subjective Patient reports having 3 BM. One BM after each meal. Patient reports stool has more consistency. Review of Systems Review of Systems: All systems reviewed & are unremarkable except as noted in HPI & below Physical Exam Physical Exam: Gen - Patient no longer appears sick, a/o x 3 Eyes - PERRL HENT -Moist MM Neck - multiple cervical lymph nodes b/l, no goiter Heart - RRR, s1 s2, no murmur Lungs - CTA b/l Abd - mildly distended, BS+, nontender, no HSM Skin - no rash, turgor decreased Musculo - no joint effusions Neuro - strength 5/5 x 4 exts Psych - a/o x 3 Lymph - multiple cervical lymph nodes b/l Results & Data Results & Data ([facility]) Vital Signs (Past 12 Hours) Vital Signs Temp Pulse Pulse Resp BP Pulse Ox 01/10/21 20:10 36.9 C 64 18 106/69 97 01/10/21 15:58 68 01/10/21 15:03 37 C 65 14 110/73 98 01/10/21 11:12 37.0 C 62 20 104/69 99 PG Care Time/CCT Total # of Minutes Spent Total Time Spent with Patient: Total time spent is greater than 50% in coordination of care (as documented) at patient's floor/unit and/or counseling patient: Coding Level of Care Code 23970 Subseq Hosp Care Lvl 3 Diagnoses C. difficile colitis A04.72 Pancolitis K51.00 Sepsis A41.9 Acute hypotension I95.9 Hypokalemia E87.6 Acute pharyngitis J02.9 Time Spent (min) 35
[2021-01-10] MEDS: ACETAMINOPHEN 325 MG TAB PO PRN (22:35)
[2021-01-11] MEDS: metroNIDAZOLE 500 MG TAB PO SCH ×2 (01:31→08:50)
[2021-01-11] MEDS: RASPBERRY SYRUP 5 ML UDP PO SCH (06:22)
[2021-01-11] MEDS: VANCOMYCIN HCL 500 MG/10 ML SOLN PO SCH ×2 (06:22→08:51)
[2021-01-11 07:30] LABS: Hematocrit (blood only) 34.3 % (37-47); Hemoglobin 11.4 g/dL (12.0-16.0); Mean Corpuscular Hemoglobin 29.1 pg (25-34); Mean Corpuscular Hgb Conc 33.2 g/dL (32-36); Mean Corpuscular Volume 87.5 fL (80-100); Mean Platelet Volume 10.3 fL (7.4-10.4); Platelet Count 216 K/uL (130-400); RDW Coefficient of Variation 12.9 % (11.5-14.5); RDW Standard Deviation 41.4 fL (36.4-46.3); Red Blood Count 3.92 M/uL (4.2-5.4); White Blood Count 4.08 K/uL (4.8-10.8)
[2021-01-11 07:53] VITALS: BP 112/78; TEMP 98.6; O2SAT 96
[2021-01-11 07:57] LABS: BUN Creatinine Ratio 7.4 (10-20); Calcium 8.5 mg/dl (8.5-10.1); Creatinine Clr Calc Pharmacy 90.5 ml/min; Est GFR (Non-African American) 111.3 ml/min; Potassium 3.7 mmol/L (3.5-5.1)
[2021-01-11] MEDS: FAMOTIDINE 20 MG in SYRINGE 3 ML IV SCH (08:49)
[2021-01-11] MEDS: ADVANCED PROBIOTIC 1250 MG CAPSULE PO SCH (08:51)
[2021-01-11] MEDS: POTASSIUM CHLORIDE 10 MEQ TABCR PO SCH (08:52)
[2021-01-11] MEDS: MULTIVITAMIN TAB PO SCH (08:52)
[2021-01-11] MEDS: VITAMIN B COMPLEX TAB PO SCH (08:57)
[2021-01-11] MEDS: CHOLECALCIFEROL 1,000 UNITS 25 MCG TAB PO SCH (08:57)
--- NOTE | 2021-01-11 09:43 | Hospitalist Progress Note ---
Date of Service January 11, 2021 Assessment & Plan (1) C. difficile colitis: Plan: Much improved on oral vancomycin. She will go home today and finish her oral course for a total of 10 days. (2) Pancolitis: Plan: 2nd to c.diff as in #1 above. (3) Sepsis: Plan: Present on admission. Now resolved (4) Acute hypotension: Plan: 2nd to #1/#3 above and severe dehydration. BPs improved with copious IV hydration. (5) Hypokalemia: Plan: Corrected (6) Acute pharyngitis: Plan: 12/23/20 rapid strep negative. I cannot find a throat culture from that office visit. s/p 5 days of clindamycin in December - now off antibiotics. Send throat culture. Check monospot; send EBV titers if monospot negative. Plan: Home today, 01/11, to complete her oral vancomycin course. She will return to work on January 18 without restriction Admission and Anticipated Discharge Date Admission Date: January 08, 2021 Subjective Alert and oriented. Diarrhea is resolving. She is medically stable and will go home today to finish her course of oral vancomycin at home. She will return to work on January 18 if she is doing well. Review of Systems Constitutional: no fever, no chills, no fatigue, no malaise, no weakness, no weight loss and no weight gain Eyes: no eye pain, no photophobia and no worsening vision Ear, Nose, Mouth, Throat: no ear pain, no hearing loss, no dizziness, no mouth lesions, no sore throat, no hoarseness, no dysphagia and no pain with swallowing Respiratory: + cough, + dyspnea, + hemoptysis and + wheezing; no dyspnea on exertion and no sputum production Cardiovascular: no chest pain, no chest pain at rest, no chest pain with activity, no dyspnea, no dyspnea at rest, no dyspnea on exertion, no orthopnea, no palpitations, no lightheadedness, no syncope and no edema Gastrointestinal: + diarrhea/loose stools; no abdominal pain, no heartburn, no nausea, no vomiting, no pain with swallowing, no dysphagia, no change in bowel habits, no blood in stools and no melena Genitourinary: no dysuria, no urinary frequency, no urinary urgency, no urinary incontinence, no hematuria, no dysmenorrhea and no abnormal vaginal bleeding Musculoskeletal: no joint pain, no deformity, no stiffness, no limited range of motion, no muscle weakness and no muscle atrophy Integumentary: no rash, no lesions, no erythema, no pruritus, no urticaria and no unusual bruising Neurologic: no gait abnormality, no unsteadiness, no falls, no localized weakness, no generalized weakness, no paralysis, no loss of sensation, no tingling, no numbness, no paresthesia, no lack of coordination, no abnormal movements, no restless legs, no seizure-like activity, no dizziness, no syncope, no headache(s) and no memory loss Psychiatric: no behavioral changes, no depression, no suicidal ideation, no homicidal ideation, no panic attacks, no auditory hallucinations and no visual hallucinations Endocrine: no fatigue, no polydipsia, no polyuria, no cold intolerance, no heat intolerance and no flushing Hematologic / Lymphatic: no easy bleeding, no easy bruising, no lymphadenopathy, no night sweats and no unexplained weight loss Allergy / Immunological: no lip swelling, no seasonal rhinorrhea, no tongue swelling, no urticaria and no wheezing Physical Exam Constitutional: WD/WN, vitals as above Eyes: PERRL, conjunctivae normal, anicteric sclerae normal visual brizuela by confrontation and PERRL ENMT: external ear and nose normal, oropharynx normal Neck: trachea midline, no thyromegaly normal visual inspection Respiratory: normal respiratory effort, lungs clear to auscultation normal percussion Cardiovascular: RRR, no murmur, no edema Gastrointestinal (Abdomen): normal bowel sounds, soft, nontender, no hepatosplenomegaly Musculoskeletal: no cyanosis or clubbing, extremities motor strength 5/5 Skin: no rashes, warm and dry Neurologic: patellar DTR's 2+ bilat, sensation intact and PERRL, EOMI, accommodation nl, no face palsy, no dysarthria CN's II-XI intact bilaterally Psychiatric: A+Ox3, euthymic affect Lymphatic: no cervical or axillary lymphadenopathy Results & Data Results & Data ([facility]) Vital Signs (Past 12 Hours) Vital Signs Temp Pulse Pulse Resp BP Pulse Ox 01/11/21 07:52 37 C 69 17 112/78 96 01/11/21 03:08 36.9 C 60 16 104/68 97 01/10/21 22:28 36.9 C 64 16 112/77 97 01/10/21 22:19 64 Laboratory Results 01/11/21 06:58 01/11/21 06:58 PG Care Time/CCT Total # of Minutes Spent Total Time Spent with Patient: Total time spent is greater than 50% in coordination of care (as documented) at patient's floor/unit and/or counseling patient: Coding Level of Care Code 89280 Subseq Hosp Care Lvl 2 Diagnoses C. difficile colitis A04.72 Pancolitis K51.00 Sepsis A41.9 Acute hypotension I95.9 Hypokalemia E87.6 Acute pharyngitis J02.9
--- NOTE | 2021-01-11 09:46 | Discharge Summary ---
Date of Service January 11, 2021 Admission HPI Per Admitting Provider 40yo female with h/o tuberculosis requiring 9 months of Rx about 11 years ago, followed by several episodes of pneumonia including fungal pneumonia in the years following her TB -- presents from home with 24 hours of poor appetite, followed by abdominal cramping starting late yesterday, and finally severe diarrhea x 4 episodes beginning this am. Stool is pure liquid and foul- smelling. NO mucous or blood. She was unable to take anything substantial by mouth this am. She did note a low-grade fever in the high 99's this am. She was severely dizzy/lightheaded to the point of near-syncope. She presented to the hospital because of these severe symptoms. Upon ER presentation her initial SBP was upper 60s. She received 3 L of crystalloid with improvement in her SBP to the 110s. Of note - patient states she had a febrile pharyngitis about 2 weeks ago. She was checked for COVID and strep - both negative. However, she did take about 5 days of clindamycin for her throat. She has felt fatigued since the URI started and has felt run down with persistent sore throat. She is unsure if she ever had a throat culture. Denies recent travel. No apparent sick contacts. She is NOT vaccinated against COVID-19. Principal Diagnosis C. difficile enteritis Discharge Data Allergies Allergy/AdvReac Type Severity Reaction Status Date / Time Penicillins Allergy Intermediate HIVES Verified 01/08/21 15:15 Consultations 01/08/21 14:54 ED Decision to Admit Stat 01/08/21 19:32 Consult Gastroenterology Routine Ordered Studies 01/08/21 12:33 CT abd pelvis IV con only Stat Hospital Course (1) C. difficile colitis: Much improved on oral vancomycin. She will go home today and finish her oral course for a total of 10 days. (2) Pancolitis: 2nd to c.diff as in #1 above. (3) Sepsis: Present on admission. Now resolved (4) Acute hypotension: 2nd to #1/#3 above and severe dehydration. BPs improved with copious IV hydration. (5) Hypokalemia: Corrected (6) Acute pharyngitis: 12/23/20 rapid strep negative. I cannot find a throat culture from that office visit. s/p 5 days of clindamycin in December - now off antibiotics. Send throat culture. Check monospot; send EBV titers if monospot negative. Home today, 01/11, to complete her oral vancomycin course. She will return to work on January 18 without restriction Total Time Total Time Spent Total Time Spent (In Minutes): 35 minutes Discharge Plan Discharge Items Patient Disposition: Home - Self-Care Reason For Visit: PANCOLITIS Discharge Diagnosis: C. difficile enteritis Activity: Resume your previous activity Non-emergency contact: Primary Care Provider Call non-emergency contact if: you have any medication questions and your symptoms worsen Follow-up/Referrals: Gaurang Hector III, CRNP [Primary Care Provider] - Diet: Regular Diet Comment: Avoid milk products until bowel function returns to normal Addtl Attending Provider Instructions: How do I killC. diffgerms at home? FindingC. diffgerms in the home is not unusual, even when no one in the home has been ill withC. diff. Most healthy adults who come in contact withC. diff in the home wont get sick. Hospitals use special cleaning products to killC. diff, but you can make a freight car cleaner at home. Mix 1 part bleach to 9 parts water. Surfaces Focus on regularly cleaning items that are touched by hands. These include but are not limited to: * doorknobs * electronics (be careful because bleach can damage many electronics and plastics) * refrigerator handles * shared cups * toilet flushers and toilet seats Laundry If someone in your house hasC. diff, wash items they touch before others use them. These include but are not limited to: * bed linens * towels * household linens * clothing, especially underwear If these items have visible poop, rinse them well before washing. Then launder in a washer and dryer, using the hottest water that is safe for those items. Use chlorine bleach if the items can be safely washed with it. Consider wearing gloves when handling dirty laundry and always wash your hands with soap and water after, even if you use gloves. Its OK to take clothes to a dry chain worker that were worn by a patient infected withC. diff. However, dry cleaning isnt as effective as other methods at killing the spores. Therefore, this option should be used only for clothes that cant be machine-washed. Pending Studies at Discharge: No Stand-Alone Forms: My [facility], Smoking Cessation Medications and DC Order Prescriptions: New cholecalciferol (vitamin D3) 25 mcg (1,000 unit) Capsule 1,000 unit PO DAILY Qty: 30 RF: 0 vancomycin 125 mg capsule 125 mg PO QID 7 Days Qty: 28 RF: 0 Discontinued multivitamin Tablet 1 tab PO DAILY RF: 0 cholecalciferol (vitamin D3) [Vitamin D3] 25 mcg (1,000 unit) Tablet 25 mcg PO DAILY RF: 0 vitamin B complex Capsule 1 cap PO DAILY RF: 0 Discharge Orders: Discharge Order (Routine); Ordered 01/11/21 Ordered By: Osmel Ruano Admission Data Admit Date/Time: 01/08/21 15:45 Attending Provider: Osmel Ruano Admit Provider: Tod Foster Primary Care Provider: Gaurang Hector III Other Providers: Tod Foster ; Nahomy Landa Coding Level of Care Code D/C DAY MANAGEMENT >30 MINS Diagnoses C. difficile colitis A04.72 Pancolitis K51.00 Sepsis A41.9 Acute hypotension I95.9 Hypokalemia E87.6 Acute pharyngitis J02.9 Time Spent (min) 35
[2021-01-11 11:31] VITALS: PULSE 60
[2021-01-11 15:21] LABS: Epstein Barr Virus Early Ag Ab <9.00 U/mL
--- NOTE | 2021-01-18 14:14 | Coding Query ---
To promote full compliance with coding requirements relating to patient care, provider participation is requested in all cases of section plotter operator uncertainty. Please assist us with the question(s) below: Coding Question(s): The diagnosis below was documented in the H&P, then subsequently fell off all further documentation. Please indicate if it is still a possible diagnosis or ruled out. Physician's Response(s): SHOCK (documented on H&P) ( x ) Diagnosed and POA. Please specify further below regarding Shock: ( x) Shock, Specified, Please Specify hypovolemic ( ) Shock, Unspecified ( ) Diagnosed and not POA. Please specify further below regarding Shock: ( ) Shock, Specified, Please Specify ( ) Shock, Unspecified ( ) Ruled out ( ) Other (please specify) MTDD
== END 2021-01-11 12:25 | disposition home or self-care (01) | DRG 871 ==
LOC: ED 12:19 → SUATTDRO 15:45 → 2N 15:45